=== PATIENT | female | born 1940 | race African-American/Black ===

== ENCOUNTER 2018-09-29 11:42 | Inpatient (IN) | payer OTHER ==
[2018-09-29] MEDS ORDERED: BUPIVACAINE HCL/PF 0.5% (5MG/ML) 10 ML VIAL ONE (12:16)
[2018-09-29] MEDS ORDERED: ROPIVACAINE HCL 0.5% 30ML VIAL ONE (12:23)
[2018-09-29] MEDS ORDERED: EPINEPHrine/PF 1 MG/1 ML (1:1,000) AMPULE ONE (12:23)
[2018-09-29] MEDS ORDERED: MIDAZOLAM HCL 2 MG/2 ML SINGLE DOSE VIAL ONE ×2 (12:24)
[2018-09-29] MEDS ORDERED: BUPIVACAINE LIPOSOME/PF (EXPAREL) 266 MG/20 ML VIAL ONE (13:06)
--- NOTE | 2018-09-29 13:07 | HP ---
History & Physical Update - History History: No Change - Physical Physical: No Change - Assessment Assessment: No Change - Plan Plan: No Change
[2018-09-29] MEDS ORDERED: ROCURONIUM BROMIDE 50 MG/5 ML VIAL ONE ×2 (13:10→15:09)
[2018-09-29] MEDS ORDERED: PROPOFOL 20 ML ONE (13:10)
[2018-09-29] MEDS ORDERED: DEXAMETHASONE SOD PHOSPHATE 4 MG/1 ML VIAL ONE (13:11)
[2018-09-29] MEDS ORDERED: ONDANSETRON 4 MG/2 ML VIAL ONE ×2 (13:11→16:57)
[2018-09-29] MEDS ORDERED: LIDOCAINE HCL/PF 2% SDV 5ML VIAL ONE ×2 (13:11→14:50)
[2018-09-29] MEDS ORDERED: ceFAZolin SODIUM 1 GM VIAL ONE (13:11)
[2018-09-29] MEDS ORDERED: SODIUM CHLORIDE 0.9% P/F 10 ML VIAL IJ ONE (13:11)
[2018-09-29] MEDS ORDERED: ceFAZolin SODIUM 1 GM VIAL IVPB ONE (13:45)
[2018-09-29] MEDS ORDERED: BUPIVACAINE HCL/PF 0.5% (5MG/ML) 10 ML VIAL IJ ONE ×2 (14:26→16:11)
[2018-09-29] MEDS ORDERED: BUPIVACAINE LIPOSOME/PF (EXPAREL) 266 MG/20 ML VIAL NR ONE ×2 (14:26→16:11)
[2018-09-29] MEDS ORDERED: ePHEDrine SULFATE 50 MG/1 ML AMPULE ONE (14:58)
[2018-09-29] MEDS ORDERED: NEOSTIGMINE METHYLSULFATE 0.5 MG/1 ML - 10 ML MDV ONE (15:48)
[2018-09-29] MEDS ORDERED: GLYCOPYRROLATE 0.2 MG/1 ML VIAL ONE (15:49)
--- NOTE | 2018-09-29 16:19 | OP ---
Operative Note - Note: Operative Date: 09/29/18 Pre-Operative Diagnosis: non functioning L kidney Operation: attempted laparoscopic L nephrectomy, open L nephrectomy Findings: severely scarred and socked in L kidney Post-Operative Diagnosis: Same as Pre-op Surgeon: Tom Amaro Reed Repairer: Jerod Mauro Anesthesiologist/STATION WORKER: Nate Dave Anesthesia: General Specimens Removed: L kidney Estimated Blood Loss (mls): 1,000 Drains & Tubes with Location: 16 fr wilhelm Operative Report Dictated: Yes
[2018-09-29] MEDS ORDERED: oxyCODONE HCL 5 MG TABLET PO PRN (16:42)
[2018-09-29] MEDS ORDERED: PROMETHAZINE HCL 25 MG/1 ML VIAL IVPB PRN (16:45)
[2018-09-29] MEDS ORDERED: DEXAMETHASONE SOD PHOSPHATE 4 MG/1 ML VIAL IVPUSH PRN (16:45)
[2018-09-29] MEDS ORDERED: HYDROmorphone *PCA* 10MG/50ML DISP.SYRIN ONE (16:56)
--- NOTE | 2018-09-29 16:59 | OP ---
DATE OF OPERATION: 09/29/2018 PREOPERATIVE DIAGNOSIS: Nonfunctioning left kidney. POSTOPERATIVE DIAGNOSIS: Nonfunctioning left kidney. PROCEDURE PERFORMED: Attempted left laparoscopic nephrectomy and open left nephrectomy. SURGEON: Esau Robledo M.D. THIRD LOADER: Zunilda ANESTHESIA: General via endotracheal tube. ANESTHESIOLOGIST: Nate Dave CRNA SPECIMENS: Left kidney. CULTURES: None. DRAINS: A 16-Bahraini Patterson catheter. ESTIMATED BLOOD LOSS: 1 L. COMPLICATIONS: None. DESCRIPTION OF PROCEDURE: The patient was brought into the operating room and placed on the operating table in the supine position. After the administration of general anesthesia via endotracheal tube, intravenous antibiotics were administered. A 16-Bahraini Patterson catheter was inserted. The patient was placed in the left lateral decubitus position and secured to the table. The kidney bridge was raised. Now a 1.5-cm incision was made in the anterior axillary line subcostally. A Veress needle was inserted and pneumoperitoneum was established. Three 12-mm trocars were placed. The laparoscope was inserted, as were the working instruments. Laparoscopy was performed. The left colon was dissected off the lateral body wall. 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 The decision was made to convert to an open nephrectomy. The trocars were removed. The ports were removed. A left subcostal incision was made, carried down through the underlying layers. Gerota fascia was identified. Using blunt and sharp dissection, the kidney was dissected free. The artery and vein were identified. Using blunt and sharp dissection, the vein was isolated. A vessel loop was placed on the vein, and then the artery was identified and dissected out. The artery was doubly clipped and ligated, and the vein was then ligated with 0 silk ligatures and clips as well. They were divided. The kidney was excised and sent to Pathology as a specimen. Hemostasis was assured in the renal fossa. Some Surgicel was placed. The table was flattened out, and the wound was closed in layers with running 0 Vicryl sutures and interrupted 0 Vicryl sutures for the muscle layers. The subcutaneous tissue was closed with interrupted 3-0 Vicryl sutures. The skin was closed with benji. The wound was sterilely dressed with Telfa, 4 x 4, and Tegaderm. She was awoken from anesthesia in the operating room and transferred to the recovery room in stable condition, after tolerating the procedure well. ESAU ROBLEDO M.D. [id number]
[2018-09-29] MEDS: ONDANSETRON 4 MG/2 ML VIAL IVPUSH PRN (17:00)
[2018-09-29] MEDS: HYDROmorphone *PCA* 10MG/50ML DISP.SYRIN PCA SCH (17:15)
[2018-09-29] MEDS: LACTATED RINGERS SOLUTION 1,000 ML IV SCH (20:00)
[2018-09-30] MEDS: MORPHINE SULFATE 2 MG/ML VIAL IM PRN ×2 (06:31→16:13)
[2018-09-30] MEDS ORDERED: LEVOTHYROXINE NA 150 MCG TABLET PO SCH (07:00)
[2018-09-30] MEDS ORDERED: FUROSEMIDE 40 MG/4 ML INJECTABLE VIAL IVPUSH ONE (07:08)
--- NOTE | 2018-09-30 07:17 | PN ---
ANGELA Hyman Note Chief Complaint: pt became confused and agitated this am, pulled out ivs, POD # 1 s/p L nephrectomy - Objective Vital Signs: Vital Signs Temperature 98.4 F 09/30/18 06:00 Pulse Rate 96 H 09/30/18 06:00 Respiratory Rate 20 09/30/18 06:00 Blood Pressure 123/57 L 09/30/18 06:00 O2 Sat by Pulse Oximetry (%) 96 09/29/18 21:00 Constitutional: Yes: Anxious, Diaphoresis, Mild Distress Respiratory: Yes: On Venti-Mask, Rales Gastrointestinal: Yes: Soft, Abdomen, Obese (sanguinous drainage post aspect wound) Genitourinary: Yes: Patterson Present Labs/Additional Data: Blood Type Blood Type A POSITIVE 09/29/18 13:15 Antibody Screen Negative 09/29/18 11:59 Problem List - Problems (1) SOB (shortness of breath) Assessment/Plan: tx to ICU care, check H/H, ABG, CXR Code(s): R06.02 - SHORTNESS OF BREATH (2) S/p nephrectomy Code(s): Z90.5 - ACQUIRED ABSENCE OF KIDNEY
--- NOTE | 2018-09-30 07:17 | RAPID ---
Physical Examination Vital Signs: Vital Signs Temperature 98.4 F 09/30/18 06:00 Pulse Rate 96 H 09/30/18 06:00 Respiratory Rate 20 09/30/18 06:00 Blood Pressure 123/57 L 09/30/18 06:00 O2 Sat by Pulse Oximetry (%) 96 09/29/18 21:00 Rapid Response - Rapid Response Assessment: Rapid response called for increasing lethargy. Pt. minimally responsive to tactile stimulation. Pt. is POD #1 for a Laproscopic L. Nephrectomy converted to open. Pt. was immediately give 2 units pRBCs after surgery. No baseline labs. No H&P. Call made initially to Dr Amaro before rapid called for AMS, Dr. Amaro recommended Morphine 2 mg because Pt. had pulled out saline lock. On PE: VS: BP 101/52, HR: 105, B. Pt. found to be desaturating to 80s on NC, therefore switched to NRB. Pt. had decreased breath sounds, S1, S2 present. Left flank dressing was removed and oozing blood was found under saturated dressing. EKG, CT A/P w/o contrast, Chemistry, ABG, CBC, PT/INR, and 3 units pRBCs ordered. Pt. transferred to to ICU for further management including transfusion and intubation. 2 Large bore IVs were in the process of being placed. Call made to Dr. Amaro, no answer.
[2018-09-30] MEDS ORDERED: LACTATED RINGERS SOLUTION 1000 ML INFUS.BAG IV ONE (07:20)
[2018-09-30 07:32] LABS: BASO % 0.1 % (0-2.0); HEMATOCRIT 35.5 % (32.4-45.2); MCH 28.2 pg (25.7-33.7); MEAN PLT VOLUME 10.2 fl (7.5-11.1); MONO % 7.1 % (3.8-10.2); NEUT % 87.8 % (42.8-82.8); PLATELET COUNT 182 K/MM3 (134-434); RDW 15.3 % (11.6-15.6); WHITE BLOOD COUNT 18.4 K/mm3 (4.0-10.0)
[2018-09-30 07:47] LABS: INR 0.98 (0.83-1.09); PROTHROMBIN TIME (PATIENT) 11.6 SEC (9.7-13.0)
[2018-09-30 08:06] LABS: ALBUMIN 3.2 g/dl (3.4-5.0); BILIRUBIN,TOTAL 0.4 mg/dL (0.2-1); BLOOD UREA NITROGEN 22.8 mg/dL (7-18); CALCIUM 8.5 mg/dL (8.5-10.1); CREATININE 2.4 mg/dL (0.55-1.3); MAGNESIUM 2.3 mg/dL (1.8-2.4); PHOSPHOROUS 7.3 mg/dL (2.5-4.9); POTASSIUM 5.5 mmol/L (3.5-5.1); TOT PROT 6.7 g/dl (6.4-8.2)
[2018-09-30 09:12] LABS: ARTERIAL BLD GAS O2 SATURATION 98.4 % (95-98); ARTERIAL BLOOD GAS BASE EXCESS -4.5 meq/l (-2-2); ARTERIAL BLOOD GAS PCO2 56.6 mmHg (35-45); ARTERIAL BLOOD GAS PO2 117 mmHg (80-105); ARTERIAL BLOOD GAS pH 7.23 (7.35-7.45)
[2018-09-30 09:23] LABS: ALLENS TEST POSITIVE
[2018-09-30] MEDS ORDERED: amLODIPine BESYLATE 5 MG TABLET (FP) PO SCH (10:00)
[2018-09-30] MEDS ORDERED: RAMIPRIL 5 MG CAPSULE (FP) PO SCH (10:00)
[2018-09-30] MEDS ORDERED: metoPROLOL SUCCINATE 25 MG TAB.SR.24H (FP) PO SCH (10:00)
[2018-09-30] MEDS: ONDANSETRON 4 MG/2 ML VIAL IVPUSH PRN (11:15)
[2018-09-30] MEDS: ACETAMINOPHEN 325 MG TABLET (FP) PO PRN ×2 (11:16→16:16)
--- NOTE | 2018-09-30 11:28 | EKG ---
Test Reason : Blood Pressure : / mmHG Vent. Rate : 097 BPM Atrial Rate : 097 BPM P-R Int : 168 ms QRS Dur : 130 ms QT Int : 386 ms P-R-T Axes : 043 026 -04 degrees QTc Int : 490 ms NORMAL SINUS RHYTHM WITH SINUS ARRHYTHMIA RIGHT BUNDLE BRANCH BLOCK INFERIOR INFARCT , AGE UNDETERMINED ABNORMAL ECG NO PREVIOUS ECGS AVAILABLE Confirmed by JACKSON REEVES MD ([id number]) on 09/30/2018 11:27:57 AM Referred By: FRANCIA ABDI DR Confirmed By:JACKSON REEVES MD
[2018-09-30] MEDS: MUPIROCIN 2% TOPICAL OINTMENT FOR DECOLONIZATION NS SCH ×2 (11:35→21:49)
--- NOTE | 2018-09-30 12:05 | PN ---
Teaching Attending Note Name of Resident: Luis Block ATTENDING PHYSICIAN STATEMENT I saw and evaluated the patient. I reviewed the resident's note and discussed the case with the resident. I agree with the resident's findings and plan as documented. SUBJECTIVE: Patient seen and examined in the ICU. More awake and alert. Denies CP or SOB. Baseline H&H not known. Seen by surgery this AM. Intake & Output 09/27/18 09/28/18 09/29/18 09/30/18 23:59 23:59 23:59 23:59 Intake Total 3000 1200 Output Total 1670 300 Balance 1330 900 Weight 197 lb Last Vital Signs Temp Pulse Resp BP Pulse Ox 98.2 F 87 20 131/83 96 09/30/18 07:17 09/30/18 10:00 09/30/18 10:00 09/30/18 10:00 09/29/18 21:00 Active Medications Acetaminophen (Tylenol -) 650 mg PO Q4H PRN PRN Reason: PAIN SCALE 4-6 Stop: 10/02/18 16:41 Last Admin: 09/30/18 11:16 Dose: 650 mg Amlodipine Besylate (Norvasc -) 5 mg PO DAILY [facility] Last Admin: 09/30/18 11:16 Dose: 5 mg Chlorhexidine Gluconate (Hibiclens For Decolonization -) 1 applic TP HS [facility] Dexamethasone Sodium Phosphate (Decadron Injection -) 4 mg IVPUSH ONCE PRN PRN Reason: NAUSEA AND/OR VOMITING Diphenhydramine HCl (Benadryl Injection -) 12.5 mg IVPUSH ONCE PRN PRN Reason: FOR ITCHING Hydromorphone HCl (Hydromorphone 10 Mg/50 Ml-Ns) 10 mg FINANCIAL MANAGEMENT CONSULTANT FINANCIAL MANAGEMENT CONSULTANT [facility]; Protocol Stop: 10/06/18 17:09 Last Admin: 09/29/18 17:15 Dose: 10 mg Lactated Ringer's (Lactated Ringers Solution) 1,000 mls @ 125 mls/hr IV ASDIR [facility] Last Admin: 09/29/18 20:00 Dose: 0 mls Levothyroxine Sodium (Synthroid -) 150 mcg PO DAILY@0700 [facility] Last Admin: 09/30/18 11:00 Dose: Not Given Metoprolol Succinate (Toprol Xl -) 25 mg PO DAILY [facility] Last Admin: 09/30/18 11:16 Dose: 25 mg Morphine Sulfate (Morphine Sulfate) 2 mg IM Q3H PRN PRN Reason: PAIN 4-6 Last Admin: 09/30/18 06:31 Dose: 2 mg Mupirocin (Bactroban Ointment (For Decolonization) -) 1 applic NS BID [facility] Stop: 10/05/18 09:59 Last Admin: 09/30/18 11:35 Dose: 1 applic Ondansetron HCl (Zofran Injection) 4 mg IVPUSH Q4H PRN PRN Reason: NAUSEA AND/OR VOMITING Last Admin: 09/30/18 11:15 Dose: 4 mg Promethazine HCl (Phenergan Injection -) 12.5 mg IVPB Q6H PRN PRN Reason: NAUSEA AND/OR VOMITING Ramipril (Altace -) 10 mg PO DAILY [facility] Last Admin: 09/30/18 11:17 Dose: 10 mg Constitutional: Yes: Sleepy but easily arousal, NAD Respiratory: Yes: Bibasilar rhonchi, nop wheeze Cardiac: S1S2 regular Gastrointestinal: Yes: Soft, Abdomen, Obese, intact dressing left flank Genitourinary: Yes: Patterson Present Labs/Additional Data: Laboratory Results - last 24 hr 09/29/18 09/29/18 09/29/18 11:59 12:29 13:15 WBC RBC Hgb Hct MCV MCH MCHC RDW Plt Count MPV Absolute Neuts (auto) Neutrophils % Lymphocytes % Monocytes % Eosinophils % Basophils % Nucleated RBC % PT with INR INR Puncture Site ABG pH ABG pCO2 at Pt Temp ABG pO2 at Pt Temp ABG HCO3 ABG O2 Sat (Measured) ABG O2 Content ABG Base Excess Micheal Test O2 Delivery Device Oxygen Flow Rate Sodium Potassium Chloride Carbon Dioxide Anion Gap BUN Creatinine Est GFR (CKD-EPI)AfAm Est GFR (CKD-EPI)NonAf POC Glucometer 108 Random Glucose Lactic Acid Calcium Phosphorus Magnesium Total Bilirubin AST ALT Alkaline Phosphatase Ammonia Total Protein Albumin Blood Type A POSITIVE A POSITIVE Antibody Screen Negative Crossmatch See Detail Crossmatch IS Only See Detail 09/29/18 09/30/18 09/30/18 13:18 06:21 07:00 WBC 18.4 H RBC 3.90 Hgb 11.0 Hct 35.5 MCV 91.0 MCH 28.2 MCHC 31.0 L RDW 15.3 Plt Count 182 MPV 10.2 Absolute Neuts (auto) 16.2 H Neutrophils % 87.8 H Lymphocytes % 5.0 L Monocytes % 7.1 Eosinophils % 0.0 Basophils % 0.1 Nucleated RBC % 0 PT with INR INR Puncture Site ABG pH ABG pCO2 at Pt Temp ABG pO2 at Pt Temp ABG HCO3 ABG O2 Sat (Measured) ABG O2 Content ABG Base Excess Micheal Test O2 Delivery Device Oxygen Flow Rate Sodium Potassium Chloride Carbon Dioxide Anion Gap BUN Creatinine Est GFR (CKD-EPI)AfAm Est GFR (CKD-EPI)NonAf POC Glucometer 194 Random Glucose Lactic Acid Calcium Phosphorus Magnesium Total Bilirubin AST ALT Alkaline Phosphatase Ammonia Total Protein Albumin Blood Type Cancelled Antibody Screen Cancelled Crossmatch Crossmatch IS Only 09/30/18 09/30/18 09/30/18 07:00 07:00 09:05 WBC RBC Hgb Hct MCV MCH MCHC RDW Plt Count MPV Absolute Neuts (auto) Neutrophils % Lymphocytes % Monocytes % Eosinophils % Basophils % Nucleated RBC % PT with INR 11.60 INR 0.98 Puncture Site Right radial ABG pH 7.23 L ABG pCO2 at Pt Temp 56.6 H ABG pO2 at Pt Temp 117 H ABG HCO3 23.0 ABG O2 Sat (Measured) 98.4 H ABG O2 Content 15.3 ABG Base Excess -4.5 L Micheal Test Positive O2 Delivery Device Nasal cannula Oxygen Flow Rate 5l Sodium 142 Potassium 5.5 H Chloride 109 H Carbon Dioxide 23 Anion Gap 10 BUN 22.8 H Creatinine 2.4 H Est GFR (CKD-EPI)AfAm 21.68 Est GFR (CKD-EPI)NonAf 18.71 POC Glucometer Random Glucose 193 H Lactic Acid Calcium 8.5 Phosphorus 7.3 H Magnesium 2.3 Total Bilirubin 0.4 AST 118 H ALT 40 Alkaline Phosphatase 104 Ammonia Total Protein 6.7 Albumin 3.2 L Blood Type Antibody Screen Crossmatch Crossmatch IS Only 09/30/18 09/30/18 09:17 09:17 WBC RBC Hgb Hct MCV MCH MCHC RDW Plt Count MPV Absolute Neuts (auto) Neutrophils % Lymphocytes % Monocytes % Eosinophils % Basophils % Nucleated RBC % PT with INR INR Puncture Site ABG pH ABG pCO2 at Pt Temp ABG pO2 at Pt Temp ABG HCO3 ABG O2 Sat (Measured) ABG O2 Content ABG Base Excess Micheal Test O2 Delivery Device Oxygen Flow Rate Sodium Potassium Chloride Carbon Dioxide Anion Gap BUN Creatinine Est GFR (CKD-EPI)AfAm Est GFR (CKD-EPI)NonAf POC Glucometer Random Glucose Lactic Acid 1.5 Calcium Phosphorus Magnesium Total Bilirubin AST ALT Alkaline Phosphatase Ammonia 21.70 Total Protein Albumin Blood Type Antibody Screen Crossmatch Crossmatch IS Only Problem List - Problems (1) SOB (shortness of breath) Assessment/Plan: tx to ICU care, check H/H, ABG, CXR Code(s): R06.02 - SHORTNESS OF BREATH (2) S/p nephrectomy Code(s): Z90.5 - ACQUIRED ABSENCE OF KIDNEY IMP: Post operative bleeding AMS due to Hypercapnea, resolving (?) OSAS Obesity Pulmonary Vascular Congestion: Etiology to be determined Follow H&H: if down trending -> CT Abdomen/Pelvis Normal transfusion thresholds ECHO Follow CXR Strict I & O Mechanical VTE prophylaxis Lasix as needed Pain control PO as tolerated when more awake Aspiration precautions Requires ICU monitoring for tenuous overall status Dr Georges Critical care time spent in reviewing chart, evaluating patient and formulating plan - 36 minutes.
--- NOTE | 2018-09-30 12:51 | CONSULT ---
Consultation: REQUESTING PROVIDER: Dr. Amaro CONSULT REQUEST: We have been asked to medically evaluate this patient for altered mental status, potential bleed HISTORY OF PRESENT ILLNESS: 78 year old female with hx HTN, HLD, hypothyroidism, CAD, CKD, DM, CABG at [facility] 2012, and non-functional L kidney is admitted to the hospital s/p L total nephrectomy. She had a non-functional L kidney per surgeon from frequent nephrolithiases and multiple infections. She had a failed L nephrostomy tube insertion on 03/2018. She is POD#1 L total nephrectomy. ICU was consulted for respiratory compromise and bleeding from surgical incision site. Currently the patient is in no acute distress. No active bleeding. Hgb currently stable. No chest pain, SOB, nausea, vomiting, diarrhea, fevers, chills. Prior Echo 04/2018: LVH, normal LV function, LA enlargement, mitral annular calcification, mild mitral regurgitation, fibrocalcific disease of aortic valve. Social: Smoke: former, quit over 25 years ago Alcohol: none Drugs: none REVIEW OF SYSTEMS: CONSTITUTIONAL: Absent: fever, chills, diaphoresis, generalized weakness, malaise, loss of appetite, weight change HEENT: Absent: rhinorrhea, nasal congestion, throat pain, throat swelling, difficulty swallowing, mouth swelling, ear pain, eye pain, visual changes CARDIOVASCULAR: Absent: chest pain, syncope, palpitations, irregular heart rate, lightheadedness , peripheral edema RESPIRATORY: Absent: cough, shortness of breath, dyspnea with exertion, orthopnea, wheezing, stridor, hemoptysis GASTROINTESTINAL: Absent: abdominal pain, abdominal distension, nausea, vomiting, diarrhea, constipation, melena, hematochezia GENITOURINARY: Absent: dysuria, frequency, urgency, hesitancy, hematuria, flank pain, genital pain MUSCULOSKELETAL: Absent: myalgia, arthralgia, joint swelling, back pain, neck pain SKIN: Absent: rash, itching, pallor HEMATOLOGIC/IMMUNOLOGIC: Absent: easy bleeding, easy bruising, lymphadenopathy, frequent infections ENDOCRINE: Absent: unexplained weight gain, unexplained weight loss, heat intolerance, cold intolerance NEUROLOGIC: Absent: headache, focal weakness or paresthesias, dizziness, unsteady gait, seizure, mental status changes, bladder or bowel incontinence PSYCHIATRIC: Absent: anxiety, depression, suicidal or homicidal ideation, hallucinations. PHYSICAL EXAMINATION Vital Signs - 24 hr 09/29/18 09/29/18 09/29/18 16:46 17:00 17:15 Temperature 97.6 F Pulse Rate 75 69 73 Respiratory 20 12 14 Rate Blood Pressure 103/40 L 123/77 131/64 O2 Sat by Pulse 100 100 100 Oximetry (%) 09/29/18 09/29/18 09/29/18 17:30 17:45 18:00 Temperature 100 F H 97.6 F Pulse Rate 76 75 83 Respiratory 18 13 12 Rate Blood Pressure 141/71 135/70 136/74 O2 Sat by Pulse 100 100 Oximetry (%) 09/29/18 09/29/18 09/29/18 18:15 18:30 18:45 Temperature 97.7 F Pulse Rate 85 84 88 Respiratory 15 13 12 Rate Blood Pressure 142/90 154/88 140/78 O2 Sat by Pulse 100 100 96 Oximetry (%) 09/29/18 09/29/18 09/29/18 19:00 19:15 19:30 Temperature Pulse Rate 93 H 100 H 99 H Respiratory 10 12 10 Rate Blood Pressure 145/75 124/91 131/89 O2 Sat by Pulse 97 95 97 Oximetry (%) 09/29/18 09/29/18 09/29/18 19:45 20:00 21:00 Temperature 98.1 F 98.4 F Pulse Rate 102 H 101 H 88 Respiratory 10 14 20 Rate Blood Pressure 151/76 140/86 159/77 O2 Sat by Pulse 100 96 96 Oximetry (%) 09/30/18 09/30/18 09/30/18 01:34 06:00 07:05 Temperature 97.8 F 98.4 F 98 F Pulse Rate 100 H 96 H 99 H Respiratory 20 20 14 Rate Blood Pressure 125/56 L 123/57 L 105/87 O2 Sat by Pulse Oximetry (%) 09/30/18 09/30/18 09/30/18 07:17 08:56 09:00 Temperature 98.2 F Pulse Rate 98 H 96 H 91 H Respiratory 20 20 15 Rate Blood Pressure 127/60 152/79 127/62 O2 Sat by Pulse Oximetry (%) 09/30/18 09/30/18 09/30/18 10:00 12:00 12:11 Temperature 97.9 F Pulse Rate 87 88 Respiratory 20 20 Rate Blood Pressure 131/83 103/63 O2 Sat by Pulse Oximetry (%) GENERAL: A&Ox1, no distress EYES: PERRL/EOMI EARS, NOSE, THROAT: Ears normal, nares patent, oropharynx clear without exudates. Moist mucous membranes. NECK: Normal range of motion, supple without lymphadenopathy, JVD, or masses. LUNGS: Breath sounds equal, clear to auscultation bilaterally. No wheezes, and no crackles. No accessory muscle use. HEART: Regular rate and rhythm, normal S1 and S2 without murmur, rub or gallop. ABDOMEN: Soft, nontender, not distended, normoactive bowel sounds, no guarding, no rebound, no masses. No hepatomegaly or splenomegaly. L sided dressing on L flank with small amount of serosanguinous drainage from inferior aspect of wound MUSCULOSKELETAL: Normal range of motion at all joints. No bony deformities or tenderness. No CVA tenderness. UPPER EXTREMITIES: 2+ pulses, warm, well-perfused. No cyanosis. No clubbing. Cap refill <2 seconds. No peripheral edema. LOWER EXTREMITIES: 2+ pulses, warm, well-perfused. No calf tenderness. No peripheral edema. NEUROLOGICAL: Cranial nerves II-XII intact. Normal speech. Normal gait. PSYCHIATRIC: Cooperative. Good eye contact. Appropriate mood and affect. SKIN: Warm, dry, normal turgor, no rashes or lesions noted. Laboratory Results - last 24 hr 09/29/18 09/29/18 09/29/18 11:59 13:15 13:18 WBC RBC Hgb Hct MCV MCH MCHC RDW Plt Count MPV Absolute Neuts (auto) Neutrophils % Lymphocytes % Monocytes % Eosinophils % Basophils % Nucleated RBC % PT with INR INR Puncture Site ABG pH ABG pCO2 at Pt Temp ABG pO2 at Pt Temp ABG HCO3 ABG O2 Sat (Measured) ABG O2 Content ABG Base Excess Micheal Test O2 Delivery Device Oxygen Flow Rate Sodium Potassium Chloride Carbon Dioxide Anion Gap BUN Creatinine Est GFR (CKD-EPI)AfAm Est GFR (CKD-EPI)NonAf POC Glucometer Random Glucose Lactic Acid Calcium Phosphorus Magnesium Total Bilirubin AST ALT Alkaline Phosphatase Ammonia Total Protein Albumin Blood Type A POSITIVE A POSITIVE Cancelled Antibody Screen Negative Cancelled Crossmatch See Detail Crossmatch IS Only See Detail 09/30/18 09/30/18 09/30/18 06:21 07:00 07:00 WBC 18.4 H RBC 3.90 Hgb 11.0 Hct 35.5 MCV 91.0 MCH 28.2 MCHC 31.0 L RDW 15.3 Plt Count 182 MPV 10.2 Absolute Neuts (auto) 16.2 H Neutrophils % 87.8 H Lymphocytes % 5.0 L Monocytes % 7.1 Eosinophils % 0.0 Basophils % 0.1 Nucleated RBC % 0 PT with INR INR Puncture Site ABG pH ABG pCO2 at Pt Temp ABG pO2 at Pt Temp ABG HCO3 ABG O2 Sat (Measured) ABG O2 Content ABG Base Excess Micheal Test O2 Delivery Device Oxygen Flow Rate Sodium 142 Potassium 5.5 H Chloride 109 H Carbon Dioxide 23 Anion Gap 10 BUN 22.8 H Creatinine 2.4 H Est GFR (CKD-EPI)AfAm 21.68 Est GFR (CKD-EPI)NonAf 18.71 POC Glucometer 194 Random Glucose 193 H Lactic Acid Calcium 8.5 Phosphorus 7.3 H Magnesium 2.3 Total Bilirubin 0.4 AST 118 H ALT 40 Alkaline Phosphatase 104 Ammonia Total Protein 6.7 Albumin 3.2 L Blood Type Antibody Screen Crossmatch Crossmatch IS Only 09/30/18 09/30/18 09/30/18 07:00 09:05 09:17 WBC RBC Hgb Hct MCV MCH MCHC RDW Plt Count MPV Absolute Neuts (auto) Neutrophils % Lymphocytes % Monocytes % Eosinophils % Basophils % Nucleated RBC % PT with INR 11.60 INR 0.98 Puncture Site Right radial ABG pH 7.23 L ABG pCO2 at Pt Temp 56.6 H ABG pO2 at Pt Temp 117 H ABG HCO3 23.0 ABG O2 Sat (Measured) 98.4 H ABG O2 Content 15.3 ABG Base Excess -4.5 L Micheal Test Positive O2 Delivery Device Nasal cannula Oxygen Flow Rate 5l Sodium Potassium Chloride Carbon Dioxide Anion Gap BUN Creatinine Est GFR (CKD-EPI)AfAm Est GFR (CKD-EPI)NonAf POC Glucometer Random Glucose Lactic Acid Calcium Phosphorus Magnesium Total Bilirubin AST ALT Alkaline Phosphatase Ammonia 21.70 Total Protein Albumin Blood Type Antibody Screen Crossmatch Crossmatch IS Only 09/30/18 09:17 WBC RBC Hgb Hct MCV MCH MCHC RDW Plt Count MPV Absolute Neuts (auto) Neutrophils % Lymphocytes % Monocytes % Eosinophils % Basophils % Nucleated RBC % PT with INR INR Puncture Site ABG pH ABG pCO2 at Pt Temp ABG pO2 at Pt Temp ABG HCO3 ABG O2 Sat (Measured) ABG O2 Content ABG Base Excess Micheal Test O2 Delivery Device Oxygen Flow Rate Sodium Potassium Chloride Carbon Dioxide Anion Gap BUN Creatinine Est GFR (CKD-EPI)AfAm Est GFR (CKD-EPI)NonAf POC Glucometer Random Glucose Lactic Acid 1.5 Calcium Phosphorus Magnesium Total Bilirubin AST ALT Alkaline Phosphatase Ammonia Total Protein Albumin Blood Type Antibody Screen Crossmatch Crossmatch IS Only Active Medications Generic Name Dose Route Start Last Admin Trade Name Freq PRN Reason Stop Dose Admin Acetaminophen 650 mg 09/29/18 16:42 09/30/18 11:16 Tylenol - PO 10/02/18 16:41 650 mg Q4H PRN Administration PAIN SCALE 4-6 Amlodipine Besylate 5 mg 09/30/18 10:00 09/30/18 11:16 Norvasc - PO 5 mg DAILY СВЕТЛАНА Administration Chlorhexidine Gluconate 1 applic 09/30/18 22:00 Hibiclens For Decolonization - TP HS СВЕТЛАНА Dexamethasone Sodium Phosphate 4 mg 09/29/18 16:45 Decadron Injection - IVPUSH ONCE PRN NAUSEA AND/OR VOMITING Diphenhydramine HCl 12.5 mg 09/29/18 16:45 Benadryl Injection - IVPUSH ONCE PRN FOR ITCHING Hydromorphone HCl 10 mg 09/29/18 17:15 09/29/18 17:15 Hydromorphone 10 Mg/50 Ml-Ns TOE FORMER STITCHDOWNS 10/06/18 17:09 10 mg TOE FORMER STITCHDOWNS СВЕТЛАНА Administration Protocol Lactated Ringer's 1,000 mls @ 125 mls/hr 09/29/18 16:45 09/29/18 20:00 Lactated Ringers Solution IV 0 mls ASDIR СВЕТЛАНА Administration Levothyroxine Sodium 150 mcg 09/30/18 07:00 09/30/18 11:00 Synthroid - PO Not Given DAILY@0700 СВЕТЛАНА Metoprolol Succinate 25 mg 09/30/18 10:00 09/30/18 11:16 Toprol Xl - PO 25 mg DAILY СВЕТЛАНА Administration Morphine Sulfate 2 mg 09/30/18 06:20 09/30/18 06:31 Morphine Sulfate IM 2 mg Q3H PRN Administration PAIN 4-6 Mupirocin 1 applic 09/30/18 10:00 09/30/18 11:35 Bactroban Ointment (For Decolonization) - NS 10/05/18 09:59 1 applic BID СВЕТЛАНА Administration Ondansetron HCl 4 mg 09/29/18 16:45 09/30/18 11:15 Zofran Injection IVPUSH 4 mg Q4H PRN Administration NAUSEA AND/OR VOMITING Promethazine HCl 12.5 mg 09/29/18 16:45 Phenergan Injection - IVPB Q6H PRN NAUSEA AND/OR VOMITING Ramipril 10 mg 09/30/18 10:00 09/30/18 11:17 Altace - PO 10 mg DAILY СВЕТЛАНА Administration ASSESSMENT/PLAN: 78 year old female with hx HTN, HLD, hypothyroidism, CAD, CKD, DM, CABG at [facility], and non-functional L kidney is admitted to the hospital s/p L total nephrectomy. #Neuro -altered mental status, likely 2/2 COPD retention -ABG shows hypercapnia with acidosis -mental status resolved #Pulmonary -no respiratory distress -on nasal cannula saturating 100% -encourage incentive spirometry -lasix PRN #Cardiovascular -postoperative bleeding likely controlled -repeat H&H now and in the afternoon -new echo now -repeat EKG #Endocrine -DM controlled -ISS -BGM ACHS -levothyroxine for hypothyroidism #FEN -no standing fluids -replete lytes as necessary #Disposition -likely transfer to floor tomorrow Visit type - Emergency Visit Emergency Visit: No - New Patient This patient is new to me today: No - Critical Care Critical Care patient: Yes Total Critical Care Time (in minutes): 35 Critical Care Statement: The care of this patient involved high complexity decision making to prevent further life threatening deterioration of the patient 's condition and/or to evaluate & treat vital organ system(s) failure or risk of failure.
--- NOTE | 2018-09-30 15:47 | PN ---
Physical Exam: SUBJECTIVE: Patient seen and examined at bedside NAD, AOX3, vitals stable, no current complaints OBJECTIVE: Vital Signs Period Temp Pulse Resp BP Sys/Alves Pulse Ox Last 24 Hr 97.6 F-100 F 69-102 10-22 103-159/40-94 95-100 GENERAL: The patient is awake, alert, and fully oriented, in no acute distress. HEAD: Normal with no signs of trauma. EYES: PERRL, extraocular movements intact, sclera anicteric, conjunctiva clear. No ptosis. ENT: Ears normal, nares patent, oropharynx clear without exudates, moist mucous membranes. NECK: Trachea midline, full range of motion, supple. LUNGS: Breath sounds equal, clear to auscultation bilaterally, no wheezes, no crackles, no accessory muscle use. HEART: Regular rate and rhythm, S1, S2 without murmur, rub or gallop. ABDOMEN: Soft, nontender, nondistended, normoactive bowel sounds, no guarding, no rebound, no hepatosplenomegaly, no masses. S/P left nepherectomy with active oozing from surgical site. Replaced with gauze and lap pads, no active bleeding EXTREMITIES: 2+ pulses, warm, well-perfused, no edema. NEUROLOGICAL: Cranial nerves II through XII grossly intact. Normal speech, gait not observed. PSYCH: Normal mood, normal affect. SKIN: Warm, dry, normal turgor, no rashes or lesions noted Laboratory Results - last 24 hr 09/29/18 09/30/18 09/30/18 11:59 06:21 07:00 WBC 18.4 H RBC 3.90 Hgb 11.0 Hct 35.5 MCV 91.0 MCH 28.2 MCHC 31.0 L RDW 15.3 Plt Count 182 MPV 10.2 Absolute Neuts (auto) 16.2 H Neutrophils % 87.8 H Lymphocytes % 5.0 L Monocytes % 7.1 Eosinophils % 0.0 Basophils % 0.1 Nucleated RBC % 0 PT with INR INR Puncture Site ABG pH ABG pCO2 at Pt Temp ABG pO2 at Pt Temp ABG HCO3 ABG O2 Sat (Measured) ABG O2 Content ABG Base Excess Micheal Test O2 Delivery Device Oxygen Flow Rate Sodium Potassium Chloride Carbon Dioxide Anion Gap BUN Creatinine Est GFR (CKD-EPI)AfAm Est GFR (CKD-EPI)NonAf POC Glucometer 194 Random Glucose Lactic Acid Calcium Phosphorus Magnesium Total Bilirubin AST ALT Alkaline Phosphatase Ammonia Total Protein Albumin Blood Type A POSITIVE Antibody Screen Negative Crossmatch See Detail Crossmatch IS Only See Detail 09/30/18 09/30/18 09/30/18 07:00 07:00 09:05 WBC RBC Hgb Hct MCV MCH MCHC RDW Plt Count MPV Absolute Neuts (auto) Neutrophils % Lymphocytes % Monocytes % Eosinophils % Basophils % Nucleated RBC % PT with INR 11.60 INR 0.98 Puncture Site Right radial ABG pH 7.23 L ABG pCO2 at Pt Temp 56.6 H ABG pO2 at Pt Temp 117 H ABG HCO3 23.0 ABG O2 Sat (Measured) 98.4 H ABG O2 Content 15.3 ABG Base Excess -4.5 L Micheal Test Positive O2 Delivery Device Nasal cannula Oxygen Flow Rate 5l Sodium 142 Potassium 5.5 H Chloride 109 H Carbon Dioxide 23 Anion Gap 10 BUN 22.8 H Creatinine 2.4 H Est GFR (CKD-EPI)AfAm 21.68 Est GFR (CKD-EPI)NonAf 18.71 POC Glucometer Random Glucose 193 H Lactic Acid Calcium 8.5 Phosphorus 7.3 H Magnesium 2.3 Total Bilirubin 0.4 AST 118 H ALT 40 Alkaline Phosphatase 104 Ammonia Total Protein 6.7 Albumin 3.2 L Blood Type Antibody Screen Crossmatch Crossmatch IS Only 09/30/18 09/30/18 09:17 09:17 WBC RBC Hgb Hct MCV MCH MCHC RDW Plt Count MPV Absolute Neuts (auto) Neutrophils % Lymphocytes % Monocytes % Eosinophils % Basophils % Nucleated RBC % PT with INR INR Puncture Site ABG pH ABG pCO2 at Pt Temp ABG pO2 at Pt Temp ABG HCO3 ABG O2 Sat (Measured) ABG O2 Content ABG Base Excess Micheal Test O2 Delivery Device Oxygen Flow Rate Sodium Potassium Chloride Carbon Dioxide Anion Gap BUN Creatinine Est GFR (CKD-EPI)AfAm Est GFR (CKD-EPI)NonAf POC Glucometer Random Glucose Lactic Acid 1.5 Calcium Phosphorus Magnesium Total Bilirubin AST ALT Alkaline Phosphatase Ammonia 21.70 Total Protein Albumin Blood Type Antibody Screen Crossmatch Crossmatch IS Only Active Medications Generic Name Dose Route Start Last Admin Trade Name Freq PRN Reason Stop Dose Admin Acetaminophen 650 mg 09/29/18 16:42 09/30/18 11:16 Tylenol - PO 10/02/18 16:41 650 mg Q4H PRN Administration PAIN SCALE 4-6 Amlodipine Besylate 5 mg 10/01/18 10:00 Norvasc - PO DAILY [facility] Chlorhexidine Gluconate 1 applic 09/30/18 22:00 Hibiclens For Decolonization - TP HS СВЕТЛАНА Dexamethasone Sodium Phosphate 4 mg 09/29/18 16:45 Decadron Injection - IVPUSH ONCE PRN NAUSEA AND/OR VOMITING Diphenhydramine HCl 12.5 mg 09/29/18 16:45 Benadryl Injection - IVPUSH ONCE PRN FOR ITCHING Hydromorphone HCl 10 mg 09/29/18 17:15 09/29/18 17:15 Hydromorphone 10 Mg/50 Ml-Ns [employer] 10/06/18 17:09 10 mg [employer] СВЕТЛАНА Administration Protocol Lactated Ringer's 1,000 mls @ 125 mls/hr 09/29/18 16:45 09/29/18 20:00 Lactated Ringers Solution IV 0 mls ASDIR [facility] Administration Insulin Aspart 1 vial 09/30/18 16:30 Novolog Vial Sliding Scale - SQ ACHS [facility] Protocol Levothyroxine Sodium 150 mcg 09/30/18 07:00 09/30/18 11:00 Synthroid - PO Not Given DAILY@0700 [facility] Metoprolol Succinate 25 mg 09/30/18 10:00 09/30/18 11:16 Toprol Xl - PO 25 mg DAILY СВ[facility]ТЛАН[facility] Administration Morphine Sulfate 2 mg 09/30/18 06:20 09/30/18 06:31 Morphine Sulfate IM 2 mg Q3H PRN Administration PAIN 4-6 Mupirocin 1 applic 09/30/18 10:00 09/30/18 11:35 Bactroban Ointment (For Decolonization) - NS 10/05/18 09:59 1 applic BID [facility] Administration Ondansetron HCl 4 mg 09/29/18 16:45 09/30/18 11:15 Zofran Injection IVPUSH 4 mg Q4H PRN Administration NAUSEA AND/OR VOMITING Promethazine HCl 12.5 mg 09/29/18 16:45 Phenergan Injection - IVPB Q6H PRN NAUSEA AND/OR VOMITING Ramipril 10 mg 09/30/18 10:00 09/30/18 11:17 Altace - PO 10 mg DAILY СВЕТЛАНА Administration Rosuvastatin Calcium 10 mg 10/01/18 22:00 Crestor - PO HS СВЕТЛАНА ASSESSMENT/PLAN: 78 year old female with hx HTN, HLD, hypothyroidism, CAD, CKD, DM, CABG at [place] 2012, and non-functional L kidney is admitted to the hospital s/p L total nephrectomy. Rapid response called for AMS, hypoxia and active bleeding from surgical site. Of not, pt has [employer] and apparently given morphine as well for pain last night blood ordered by rapid response team and reports of considering intubation due to AMS and potential for loosing airway. Place 18 gauge Right EJ and pt has 2 peripheral [address] LR started however after 500cc bolus, pt had bilateral crackles, fluids stopped and given lasix push with resolution of crackles on reassessment Pt noted to be mumbling the alphabet repetitively from admission to ICU 7 am to approx 8 am, became AOX3 return to baseline Hemoglobin 11, dressing replaced with no active bleeding Pt AOX3, NAD, no current complaints, vitals stable PCP: Dr. Haynes # [phone] Most recent labs per PCP 09/20/2018 labs: cr 1.17, bun 20 hemoglobin 11.8 last a1c 6.4 PMH: hypothyroidism (levothyrox 150 mcq) dm no medications since last a1c CAD, stents 2012, Dr. rod at [facility], no blood thinners HTN: ramipril 10 mg, amlodpine 5 mg, metoprolol 25 HLD: crestor 20 depression no medication Right hip chronic pain no allergies former smoker Pt totally functional at home, plans for travel next month Plan: #Neuro -altered mental status, Opiate induced vs hypercapnia - Hold all opiates -ABG shows hypercapnia with acidosis -mental status resolved #Pulmonary -no respiratory distress -on nasal cannula saturating 100% -encourage incentive spirometry -lasix PRN #Cardiovascular -postoperative bleeding likely controlled -repeat H&H now and in the afternoon -new echo now -repeat EKG #Endocrine -DM controlled -ISS -BGM ACHS -levothyroxine for hypothyroidism #FEN -no standing fluids -replete lytes as necessary #Disposition -likely transfer to floor tomorrow Visit type - Emergency Visit Emergency Visit: Yes ED Registration Date: 09/29/18 Care time: The patient presented to the Emergency Department on the above date and was hospitalized for further evaluation of their emergent condition. - New Patient This patient is new to me today: Yes Date on this admission: 09/30/18 - Critical Care Critical Care patient: Yes Total Critical Care Time (in minutes): 60 Critical Care Statement: The care of this patient involved high complexity decision making to prevent further life threatening deterioration of the patient 's condition and/or to evaluate & treat vital organ system(s) failure or risk of failure.
[2018-09-30] MEDS ORDERED: LIDOCAINE 5% TOPICAL PATCH TP ONE (16:05)
[2018-09-30] MEDS: INSULIN SLIDING SCALE (NOVOLOG) 1 VIAL SQ SCH ×2 (17:05→21:49)
[2018-09-30 17:24] LABS: EPI CELLS 0.4 /HPF (0-5/HPF); HYALINE CASTS 9 /lpf (0-8); URINE APPEARANCE CLEAR; URINE BACTERIA 1.2 /hpf (NEGATIVE); URINE BILIRUBIN NEGATIVE (NEGATIVE); URINE COLOR YELLOW; URINE GLUCOSE (UA) NEGATIVE (NEGATIVE); URINE KETONE NEGATIVE (NEGATIVE); URINE LEUK ESTERASE NEGATIVE (NEGATIVE); URINE NITRITE NEGATIVE (NEGATIVE); URINE PROTEIN NEGATIVE (NEGATIVE); URINE UROBILINOGEN 0.2 mg/dL (0.2-1.0); URINE WBC 1 /hpf (0-5)
[2018-09-30] MEDS ORDERED: PROMETHAZINE HCL 25 MG/1 ML VIAL IVPB PRN (17:31)
[2018-09-30] MEDS ORDERED: ONDANSETRON 4 MG/2 ML VIAL IVPUSH PRN (17:31)
[2018-09-30] MEDS ORDERED: DEXAMETHASONE SOD PHOSPHATE 4 MG/1 ML VIAL IVPUSH PRN (17:31)
[2018-09-30 17:45] LABS: HEMOGLOBIN 10.5 GM/dL (10.7-15.3); MCH 28.2 pg (25.7-33.7); MCHC 31.8 g/dl (32.0-36.0); MEAN CELL VOLUME 88.4 fl (80-96); MEAN PLT VOLUME 9.9 fl (7.5-11.1); PLATELET COUNT 158 K/MM3 (134-434); RBC 3.74 M/mm3 (3.60-5.2); RDW 15.3 % (11.6-15.6); WHITE BLOOD COUNT 16.8 K/mm3 (4.0-10.0)
[2018-09-30] MEDS: HYDROmorphone *PCA* 10MG/50ML DISP.SYRIN PCA SCH (18:34)
[2018-09-30] MEDS: LACTATED RINGERS SOLUTION 1,000 ML IV SCH (18:34)
[2018-09-30 19:14] LABS: URINE RBC 8.9 /hpf (0-4)
[2018-09-30] MEDS ORDERED: morphine CARPU-JECT 2 MG/1 ML DISP.SYRIN IVPUSH PRN (19:54)
[2018-09-30] MEDS ORDERED: MORPHINE SULFATE 2 MG/ML VIAL ONE (20:11)
[2018-09-30 20:13] LABS: HEMATOCRIT 32.1 % (32.4-45.2); HEMOGLOBIN 10.4 GM/dL (10.7-15.3); MCH 28.6 pg (25.7-33.7); MCHC 32.4 g/dl (32.0-36.0); MEAN CELL VOLUME 88.3 fl (80-96); MEAN PLT VOLUME 9.8 fl (7.5-11.1); PLATELET COUNT 147 K/MM3 (134-434); RBC 3.63 M/mm3 (3.60-5.2); RDW 15.1 % (11.6-15.6); WHITE BLOOD COUNT 18.3 K/mm3 (4.0-10.0)
[2018-09-30] MEDS: ACETAMINOPHEN 650 MG/20.3 ML ORAL SOLUTION (CUPS) PO PRN (20:17)
[2018-09-30] MEDS: MORPHINE SULFATE 2 MG/ML VIAL IVPUSH PRN (20:30)
[2018-09-30] MEDS: CHLORHEXIDINE GLUCONATE 4% CLEANSER FOR DECOLONIZATION TP SCH (21:48)
[2018-09-30] MEDS: LIDOCAINE PATCH REMOVAL MC SCH (21:48)
[2018-10-01] MEDS: MORPHINE SULFATE 2 MG/ML VIAL IVPUSH PRN ×3 (02:23→16:35)
[2018-10-01] MEDS: INSULIN SLIDING SCALE (NOVOLOG) 1 VIAL SQ SCH ×4 (06:22→21:18)
[2018-10-01 07:55] LABS: HEMATOCRIT 30.5 % (32.4-45.2); MCH 28.6 pg (25.7-33.7); MCHC 32.7 g/dl (32.0-36.0); MEAN CELL VOLUME 87.4 fl (80-96); MEAN PLT VOLUME 10.5 fl (7.5-11.1); PLATELET COUNT 147 K/MM3 (134-434); RBC 3.49 M/mm3 (3.60-5.2)
[2018-10-01 08:00] LABS: ALBUMIN 3.1 g/dl (3.4-5.0); BILIRUBIN,TOTAL 0.4 mg/dL (0.2-1); BLOOD UREA NITROGEN 33.6 mg/dL (7-18); CALCIUM 8.7 mg/dL (8.5-10.1); CREATININE 2.4 mg/dL (0.55-1.3); POTASSIUM 4.7 mmol/L (3.5-5.1); TOT PROT 6.4 g/dl (6.4-8.2)
--- NOTE | 2018-10-01 08:28 | PN ---
Progress Note (short form) - Note Progress Note: PULM/CCM POD#2: s/p L total nephrectomy c/b AMS m/l 2/2 opiate induced hypercapnia Pt seen & examined in ICU. OOB --> Chair. CA+OX3 in NAD but somnolent & Lethargic. C/o intermittent R Flank Pain (chronic). L Flank dressing C/D/I. Active Medications Acetaminophen (Tylenol Oral Solution -) 650 mg PO Q6H PRN PRN Reason: PAIN Last Admin: 09/30/18 20:17 Dose: 650 mg Amlodipine Besylate (Norvasc -) 5 mg PO DAILY [facility] Chlorhexidine Gluconate (Hibiclens For Decolonization -) 1 applic TP HS [facility] Last Admin: 09/30/18 21:48 Dose: 1 applic Dexamethasone Sodium Phosphate (Decadron Injection -) 4 mg IVPUSH ONCE PRN PRN Reason: NAUSEA AND/OR VOMITING Insulin Aspart (Novolog Vial Sliding Scale -) 1 vial SQ [facility]; Protocol Last Admin: 10/01/18 06:22 Dose: Not Given Miscellaneous (Lidoderm Patch Removal) 1 each MC DAILY@2200 [facility] Last Admin: 09/30/18 21:48 Dose: 1 each Morphine Sulfate (Morphine Sulfate) 2 mg IVPUSH Q6H PRN PRN Reason: PAIN LEVEL 1-5 Last Admin: 10/01/18 02:23 Dose: 2 mg Mupirocin (Bactroban Ointment (For Decolonization) -) 1 applic NS BID [facility] Stop: 10/05/18 09:59 Last Admin: 09/30/18 21:49 Dose: 1 applic Ondansetron HCl (Zofran Injection) 4 mg IVPUSH Q4H PRN PRN Reason: NAUSEA AND/OR VOMITING Promethazine HCl (Phenergan Injection -) 12.5 mg IVPB Q6H PRN PRN Reason: NAUSEA AND/OR VOMITING Rosuvastatin Calcium (Crestor -) 10 mg PO [facility] Vital Signs Period Temp Pulse Resp BP Sys/Alves Pulse Ox Last 24 Hr 97.9 F-99.3 F 65-96 15-25 99-168/58-94 100 Intake & Output 09/28/18 09/29/18 09/30/18 10/01/18 23:59 23:59 23:59 23:59 Intake Total 3000 2425 Output Total 1670 1450 400 Balance 1330 975 -400 Weight 89.358 kg 88.723 kg GEN: Elderly obese woman, washed out, lethargic HEENT: PERRL, an-icteric, MMM PULM: Diminished B/L CV: nml S1 S2, RR, unable to appreciate any G/M/R ABD: Obese, hypoactive BS, S/S N/T N/D X4Q, L Flank drain C/D/I EXT: + Pulses, WWP X4, (-) edema CBC, BMP 10/01/18 06:26 ABG Results ABG pH 7.23 (7.35-7.45) L 09/30/18 09:05 ABG pCO2 at Pt Temp 56.6 mmHg (35-45) H 09/30/18 09:05 ABG pO2 at Pt Temp 117 mmHg (80-105) H 09/30/18 09:05 ABG HCO3 23.0 mmol/L (22-27) 09/30/18 09:05 ABG O2 Sat (Measured) 98.4 % (95-98) H 09/30/18 09:05 ABG O2 Content 15.3 % vol (15-22) 09/30/18 09:05 ABG Base Excess -4.5 meq/l (-2-2) L 09/30/18 09:05 RECENT STUDIES TO NOTE: CXR 09/30: A single AP view of the chest reveals sternal sutures and clips, large heart, sclerotic knob and congestive changes. Angles are sharp. The bones and soft tissues are intact. KUB 09/29: No unintentional radiopaque foreign body is seen. Surgical clips are noted within or overlapping the left paramedian aspect of the mid abdomen. Skin benji are seen in place along the left mid-abdomen. The intestinal bowel gas pattern appears unremarkable. A urinary bladder catheter appears to be in place. Status post median sternotomy. IMPRESSION: No radiopaque foreign body is identified ASSESS: -POD#2 s/p L total nephrectomy -MO -Opiate induced hypercapnia -HTN -HLD -CAD (s/p CABG) -A on C renal Fail -DM -Hypothyroid PLAN: -Elmore Clxr (Post-Op leukocytosis) -Supp FiO2 prn for SpO2 > 92% -nebs -IS -Nocturnal Bi-Level -D/c Ramapril -Gentle diuresis -Daily weights -Strict I's & O's -Trend BUN/Cr -Replete e-lytes prn -FSs -SSI -Cont Synth -Transfer to Med Surg w/ standing nocturnal Bi-Level & Bi-Level prn while on opiate meds for pain -Track Post-Op leukocytosis -Low threshold to start abx -Pt will need an out pt polysomnography -Sx to follow L nephrostomy wound SHERI Peck-BC [facility] ICU PULM/CCM [id number]
[2018-10-01] MEDS ORDERED: PATIENT'S OWN MEDICATION (NON-FORMULARY) (Ramipril [Ramipril] 10 MG) PO SCH (10:00)
[2018-10-01] MEDS ORDERED: metoPROLOL SUCCINATE 25 MG TAB.SR.24H (FP) PO SCH (10:00)
[2018-10-01] MEDS ORDERED: LEVOTHYROXINE NA 150 MCG TABLET PO SCH (10:00)
[2018-10-01] MEDS: ACETAMINOPHEN 650 MG/20.3 ML ORAL SOLUTION (CUPS) PO PRN ×2 (10:45→17:52)
[2018-10-01] MEDS: amLODIPine BESYLATE 5 MG TABLET (FP) PO SCH (10:46)
[2018-10-01] MEDS: MUPIROCIN 2% TOPICAL OINTMENT FOR DECOLONIZATION NS SCH ×2 (10:47→21:17)
[2018-10-01] MEDS ORDERED: DEXMEDETOMIDINE HCL 200 MCG in SODIUM CHLORIDE 48 ML IVPB SCH (21:15)
[2018-10-01] MEDS: ROSUVASTATIN CA 10 MG TABLET (FP) PO SCH (21:16)
[2018-10-01] MEDS: CHLORHEXIDINE GLUCONATE 4% CLEANSER FOR DECOLONIZATION TP SCH (21:17)
[2018-10-01] MEDS: LIDOCAINE PATCH REMOVAL MC SCH (21:18)
[2018-10-02] MEDS: INSULIN SLIDING SCALE (NOVOLOG) 1 VIAL SQ SCH ×4 (06:12→21:21)
[2018-10-02] MEDS: ACETAMINOPHEN 325 MG TABLET (FP) PO PRN ×2 (09:08→20:02)
--- NOTE | 2018-10-02 10:19 | PN ---
Progress Note (short form) - Note Progress Note: PULM/CCM POD#3: s/p L total nephrectomy c/b AMS m/l 2/2 opiate induced hypercapnia Pt seen & examined in ICU. Post-Op leukocytosis defervescing (18 --> 14). Marked improvement in mental status s/p precedex & Bi-Level O/N now pt is requesting to be spoon fed by the ICU nursing staff on demand --> Pt is READY FOR TRANSFER TO THE FLOOR!! Active Medications Acetaminophen (Tylenol -) 650 mg PO Q6H PRN PRN Reason: HEADACHE Last Admin: 10/02/18 09:08 Dose: 650 mg Amlodipine Besylate (Norvasc -) 5 mg PO DAILY [facility] Last Admin: 10/01/18 10:46 Dose: 5 mg Chlorhexidine Gluconate (Hibiclens For Decolonization -) 1 applic TP HS [facility] Last Admin: 10/01/18 21:17 Dose: 1 applic Dexamethasone Sodium Phosphate (Decadron Injection -) 4 mg IVPUSH ONCE PRN PRN Reason: NAUSEA AND/OR VOMITING Dexmedetomidine HCl 200 mcg/ (Sodium Chloride) 50 mls @ 4.42 mls/hr IVPB TITR [facility] Stop: 10/02/18 21:14 Last Infusion: 10/02/18 06:40 Dose: 0 mcg/kg/hr, 0 mls/hr Insulin Aspart (Novolog Vial Sliding Scale -) 1 vial SQ ACHS [facility]; Protocol Last Admin: 10/02/18 06:12 Dose: Not Given Miscellaneous (Lidoderm Patch Removal) 1 each MC DAILY@2200 [facility] Last Admin: 10/01/18 21:18 Dose: Not Given Morphine Sulfate (Morphine Sulfate) 2 mg IVPUSH Q6H PRN PRN Reason: PAIN LEVEL 1-5 Last Admin: 10/01/18 16:35 Dose: 2 mg Mupirocin (Bactroban Ointment (For Decolonization) -) 1 applic NS BID [facility] Stop: 10/05/18 09:59 Last Admin: 10/01/18 21:17 Dose: 1 applic Ondansetron HCl (Zofran Injection) 4 mg IVPUSH Q4H PRN PRN Reason: NAUSEA AND/OR VOMITING Promethazine HCl (Phenergan Injection -) 12.5 mg IVPB Q6H PRN PRN Reason: NAUSEA AND/OR VOMITING Rosuvastatin Calcium (Crestor -) 10 mg PO HS [facility] Last Admin: 10/01/18 21:16 Dose: 10 mg Vital Signs Period Temp Pulse Resp BP Sys/Alves Pulse Ox Last 24 Hr 98.6 F-99.8 F 64-85 15-18 100-160/55-83 95-100 Intake & Output 09/29/18 09/30/18 10/01/18 10/02/18 23:59 23:59 23:59 23:59 Intake Total 3000 2425 320 30.8 Output Total 1670 1450 1100 1200 Balance 1330 975 -780 -1169.2 Weight 88.451 kg 88.632 kg GEN: Elderly obese woman, washed out but much more awake today HEENT: PERRL, an-icteric, MMM PULM: Diminished B/L CV: nml S1 S2, RR, unable to appreciate any G/M/R ABD: Obese, hypoactive BS, S/S N/T N/D X4Q, L Flank dressing C/D/I EXT: + Pulses, WWP X4, (-) edema CBC, BMP 10/01/18 06:26 10/01/18 06:26 ABG Results ABG pH 7.23 (7.35-7.45) L 09/30/18 09:05 ABG pCO2 at Pt Temp 56.6 mmHg (35-45) H 09/30/18 09:05 ABG pO2 at Pt Temp 117 mmHg (80-105) H 09/30/18 09:05 ABG HCO3 23.0 mmol/L (22-27) 09/30/18 09:05 ABG O2 Sat (Measured) 98.4 % (95-98) H 09/30/18 09:05 ABG O2 Content 15.3 % vol (15-22) 09/30/18 09:05 ABG Base Excess -4.5 meq/l (-2-2) L 09/30/18 09:05 RECENT STUDIES TO NOTE: CXR 09/30: A single AP view of the chest reveals sternal sutures and clips, large heart, sclerotic knob and congestive changes. Angles are sharp. The bones and soft tissues are intact. KUB 09/29: No unintentional radiopaque foreign body is seen. Surgical clips are noted within or overlapping the left paramedian aspect of the mid abdomen. Skin benji are seen in place along the left mid-abdomen. The intestinal bowel gas pattern appears unremarkable. A urinary bladder catheter appears to be in place. Status post median sternotomy. IMPRESSION: No radiopaque foreign body is identified ASSESS: -POD#3 s/p L total nephrectomy -MO -Opiate induced hypercapnia -HTN -HLD -CAD (s/p CABG) -A on C renal Fail -DM -Hypothyroid PLAN: -Supp FiO2 prn for SpO2 > 92% -nebs -IS -Cont Nocturnal Bi-Level -D/c Ramapril (Pt in Renal Fail & only has one kidney left) -Gentle diuresis -Daily weights -Strict I's & O's -Trend BUN/Cr -Replete e-lytes prn -FSs -SSI -Cont Synth -Pt will need an out-pt polysomnography -Sx to follow -Transfer to Med Surg w/ standing nocturnal Bi-Level & Bi-Level prn while on opiate meds for Post-Op pain Thank You for this Interesting Consult SHERI Peck-BC [facility] ICU PULM/CCM [id number]
[2018-10-02] MEDS: amLODIPine BESYLATE 5 MG TABLET (FP) PO SCH (10:48)
[2018-10-02] MEDS ORDERED: PT OWN MED DRAWER 7, Y5N ONE ×2 (16:14→21:07)
[2018-10-02] MEDS: MUPIROCIN 2% TOPICAL OINTMENT FOR DECOLONIZATION NS SCH ×2 (16:19→21:10)
[2018-10-02] MEDS: ROSUVASTATIN CA 10 MG TABLET (FP) PO SCH (21:10)
[2018-10-02] MEDS: LIDOCAINE PATCH REMOVAL MC SCH (21:21)
[2018-10-02] MEDS: CHLORHEXIDINE GLUCONATE 4% CLEANSER FOR DECOLONIZATION TP SCH (21:21)
[2018-10-03] MEDS: MORPHINE SULFATE 2 MG/ML VIAL IVPUSH PRN (01:26)
[2018-10-03 06:07] LABS: HEMATOCRIT 33.1 % (32.4-45.2); HEMOGLOBIN 10.8 GM/dL (10.7-15.3); MCH 28.3 pg (25.7-33.7); MCHC 32.5 g/dl (32.0-36.0); MEAN CELL VOLUME 86.9 fl (80-96); MEAN PLT VOLUME 9.2 fl (7.5-11.1); PLATELET COUNT 200 K/MM3 (134-434); RBC 3.81 M/mm3 (3.60-5.2); RDW 14.6 % (11.6-15.6); WHITE BLOOD COUNT 8.7 K/mm3 (4.0-10.0)
[2018-10-03] MEDS: INSULIN SLIDING SCALE (NOVOLOG) 1 VIAL SQ SCH ×4 (06:17→21:51)
[2018-10-03] MEDS: ACETAMINOPHEN 325 MG TABLET (FP) PO PRN ×2 (06:20→16:48)
[2018-10-03 06:26] LABS: BLOOD UREA NITROGEN 24.7 mg/dL (7-18); CALCIUM 8.9 mg/dL (8.5-10.1); CREATININE 1.5 mg/dL (0.55-1.3); MAGNESIUM 2.2 mg/dL (1.8-2.4); PHOSPHOROUS 3.2 mg/dL (2.5-4.9)
--- NOTE | 2018-10-03 07:08 | PN ---
Physical Exam: SUBJECTIVE: Patient seen and examined at bedside this morning. Patient endorses slight pain at incision site. She is tolerating diet with slight nausea, however denies abdominal pain, or vomiting. States that she has not yet passed bowel movement postoperatively. Patient urinating without hematuria, dysuria. Denies subjective fevers, chills, shortness of breath, chest pain, palpitations. OBJECTIVE: Vital Signs Period Temp Pulse Resp BP Sys/Alves Pulse Ox Last 24 Hr 98 F-98.6 F 65-93 16-24 108-169/63-110 95-100 GENERAL: The patient is awake, alert, and fully oriented, in no acute distress. HEAD: Normocephalic, atraumatic. EYES: PERRL, extraocular movements intact, sclera anicteric, conjunctiva clear. ENT: Oropharynx clear without exudates, moist mucous membranes. NECK: Supple without lymphadenopathy LUNGS: Breath sounds equal, clear to auscultation bilaterally, no wheezes, no crackles, no accessory muscle use. HEART: Regular rate and rhythm, S1, S2 without murmur, rub or gallop. ABDOMEN: Obese abdomen. Soft, tender to palpation over surgical site. Normoactive bowel sounds, no guarding, no rebound tenderness. EXTREMITIES: 2+ radial, dorsalis pedis pulses bilateraly. Warm, well-perfused. No edema bilateral lower extremities. NEUROLOGICAL: Cranial nerves II through XII grossly intact. Normal speech PSYCH: Normal mood, normal affect upon my encounter. SKIN: Warm, dry. Surgical site bandaged clean, dry. Laboratory Results - last 24 hr 09/29/18 10/02/18 10/02/18 11:59 12:41 18:25 WBC RBC Hgb Hct MCV MCH MCHC RDW Plt Count MPV Sodium Potassium Chloride Carbon Dioxide Anion Gap BUN Creatinine Est GFR (CKD-EPI)AfAm Est GFR (CKD-EPI)NonAf POC Glucometer 100 90 Random Glucose Calcium Phosphorus Magnesium Blood Type A POSITIVE Antibody Screen Negative Crossmatch See Detail Crossmatch IS Only See Detail 10/02/18 10/03/18 10/03/18 21:19 05:20 05:20 WBC 8.7 RBC 3.81 Hgb 10.8 Hct 33.1 MCV 86.9 MCH 28.3 MCHC 32.5 RDW 14.6 Plt Count 200 D MPV 9.2 D Sodium 142 Potassium 4.0 Chloride 107 Carbon Dioxide 31 Anion Gap 3 L BUN 24.7 H Creatinine 1.5 H Est GFR (CKD-EPI)AfAm 38.28 Est GFR (CKD-EPI)NonAf 33.02 POC Glucometer 129 Random Glucose 95 Calcium 8.9 Phosphorus 3.2 Magnesium 2.2 Blood Type Antibody Screen Crossmatch Crossmatch IS Only 10/03/18 06:12 WBC RBC Hgb Hct MCV MCH MCHC RDW Plt Count MPV Sodium Potassium Chloride Carbon Dioxide Anion Gap BUN Creatinine Est GFR (CKD-EPI)AfAm Est GFR (CKD-EPI)NonAf POC Glucometer 91 Random Glucose Calcium Phosphorus Magnesium Blood Type Antibody Screen Crossmatch Crossmatch IS Only Active Medications Generic Name Dose Route Start Last Admin Trade Name Freq PRN Reason Stop Dose Admin Acetaminophen 650 mg 10/01/18 17:56 10/03/18 06:20 Tylenol - PO 650 mg Q6H PRN Administration HEADACHE Amlodipine Besylate 5 mg 10/01/18 10:00 10/02/18 10:48 Norvasc - PO 5 mg DAILY [facility] Administration Chlorhexidine Gluconate 1 applic 09/30/18 22:00 10/02/18 21:21 Hibiclens For Decolonization - TP 1 applic HS [facility]ЛАН[facility] Administration Dexamethasone Sodium Phosphate 4 mg 09/30/18 17:31 Decadron Injection - IVPUSH ONCE PRN NAUSEA AND/OR VOMITING Insulin Aspart 1 vial 09/30/18 16:30 10/03/18 06:17 Novolog Vial Sliding Scale - SQ Not Given ACHS [facility] Protocol Miscellaneous 1 each 09/30/18 22:00 10/02/18 21:21 Lidoderm Patch Removal MC Not Given DAILY@2200 [facility] Morphine Sulfate 2 mg 09/30/18 20:14 10/03/18 01:26 Morphine Sulfate IVPUSH 2 mg Q6H PRN Administration PAIN LEVEL 1-5 Mupirocin 1 applic 09/30/18 10:00 10/02/18 21:10 Bactroban Ointment (For Decolonization) - NS 10/05/18 09:59 1 applic BID [facility] Administration Ondansetron HCl 4 mg 09/30/18 17:31 10/02/18 16:08 Zofran Injection IVPUSH 4 mg Q4H PRN Administration NAUSEA AND/OR VOMITING Promethazine HCl 12.5 mg 09/30/18 17:31 Phenergan Injection - IVPB Q6H PRN NAUSEA AND/OR VOMITING Rosuvastatin Calcium 10 mg 10/01/18 22:00 10/02/18 21:10 Crestor - PO 10 mg HS [facility] Administration ASSESSMENT/PLAN: Patient is a 78 year old female with history of chronic kidney disease, coronary artery disease s/p CABG, diabetes mellitus, hypertension, hyperlipidemia, hypothyroidism, admitted to ICU due to altered mental status, and hypoxemia s/p left nephrectomy. Neurological -Patient is awake, alert, fully oriented. No acute distress -Monitor for signs of mental status changes. Pulmonary -Patient saturating well on room air -Maintain oxygen saturation greater than 90% Cardiac History of coronary artery disease s/p CABG History of hypertension History of hyperlipidemia -Amlodipine 5mg PO daily -Rosuvastatin 10mg PO HS Endocrine History of diabetes mellitus History of hypothyroidism -Levothyroxine 150mcg PO daily -Insulin sliding scale ACHS -Fingerstick blood glucose ACHS Nephrologic Patient is POD# 4 s/p left sided nephrectomy -Dr. Amaro recommendations appreciated. Hematology -Hb/ Hct stable. Follow CMP FEN -No IV fluids indicated -Within normal limits. Follow CMP, replete as necessary -Diabetic, sodium controlled diet. Prophylaxis -SCDs bilateral lower extremities. Discuss with surgery team regarding any chemical anticoagulation. Disposition -Patient is medically stable for transfer to medical-surgical floor. Requires BiLevel ventilation at night. Visit type - Emergency Visit Emergency Visit: Yes ED Registration Date: 09/29/18 Care time: The patient presented to the Emergency Department on the above date and was hospitalized for further evaluation of their emergent condition. - New Patient This patient is new to me today: Yes Date on this admission: 10/03/18 - Critical Care Critical Care patient: Yes Total Critical Care Time (in minutes): 35 Critical Care Statement: The care of this patient involved high complexity decision making to prevent further life threatening deterioration of the patient 's condition and/or to evaluate & treat vital organ system(s) failure or risk of failure. - Discharge Referral Referred to [facility] Med P.C.: No
[2018-10-03] MEDS: LEVOTHYROXINE NA 75 MCG TABLET (FP) PO SCH (08:46)
[2018-10-03] MEDS: amLODIPine BESYLATE 5 MG TABLET (FP) PO SCH (10:45)
[2018-10-03] MEDS: MUPIROCIN 2% TOPICAL OINTMENT FOR DECOLONIZATION NS SCH (10:46)
--- NOTE | 2018-10-03 11:01 | PN ---
Teaching Attending Note Name of Resident: Connor Bermeo ATTENDING PHYSICIAN STATEMENT I saw and evaluated the patient. I reviewed the resident's note and discussed the case with the resident. I agree with the resident's findings and plan as documented. SUBJECTIVE: Patient seen and examined in the ICU. Awake and alert. NO CP or SOB. Still with discomfort at the surgical site with movement. Intake & Output 09/30/18 10/01/18 10/02/18 10/03/18 23:59 23:59 23:59 23:59 Intake Total 2425 320 790.8 Output Total 1450 1100 2600 450 Balance 975 -780 -1809.2 -450 Weight 195 lb 195 lb 6.4 oz 194 lb 7 oz Last Vital Signs Temp Pulse Resp BP Pulse Ox 98.1 F 81 20 151/91 100 10/03/18 08:04 10/03/18 08:04 10/03/18 08:04 10/03/18 08:04 10/03/18 08:04 Active Medications Acetaminophen (Tylenol -) 650 mg PO Q6H PRN PRN Reason: HEADACHE Last Admin: 10/03/18 06:20 Dose: 650 mg Amlodipine Besylate (Norvasc -) 5 mg PO DAILY [facility] Last Admin: 10/03/18 10:45 Dose: 5 mg Chlorhexidine Gluconate (Hibiclens For Decolonization -) 1 applic TP HS [facility] Last Admin: 10/02/18 21:21 Dose: 1 applic Dexamethasone Sodium Phosphate (Decadron Injection -) 4 mg IVPUSH ONCE PRN PRN Reason: NAUSEA AND/OR VOMITING Insulin Aspart (Novolog Vial Sliding Scale -) 1 vial SQ [facility]; Protocol Last Admin: 10/03/18 06:17 Dose: Not Given Levothyroxine Sodium (Synthroid -) 150 mcg PO DAILY@0700 [facility] Last Admin: 10/03/18 08:46 Dose: 150 mcg Miscellaneous (Lidoderm Patch Removal) 1 each MC DAILY@2200 [facility] Last Admin: 10/02/18 21:21 Dose: Not Given Morphine Sulfate (Morphine Sulfate) 2 mg IVPUSH Q6H PRN PRN Reason: PAIN LEVEL 1-5 Last Admin: 10/03/18 01:26 Dose: 2 mg Mupirocin (Bactroban Ointment (For Decolonization) -) 1 applic NS BID [facility] Stop: 10/05/18 09:59 Last Admin: 10/03/18 10:46 Dose: 1 applic Ondansetron HCl (Zofran Injection) 4 mg IVPUSH Q4H PRN PRN Reason: NAUSEA AND/OR VOMITING Last Admin: 10/02/18 16:08 Dose: 4 mg Promethazine HCl (Phenergan Injection -) 12.5 mg IVPB Q6H PRN PRN Reason: NAUSEA AND/OR VOMITING Rosuvastatin Calcium (Crestor -) 10 mg PO HS [facility] Last Admin: 10/02/18 21:10 Dose: 10 mg GEN: Sleepy but easily arousable, NAD HEENT: PERRL, an-icteric, MMM PULM: Clear CV: S1 S2 ABD: Obese, (+) BS, (+) mild tenderness to palpation, Left flank drain C/D/I EXT: + Pulses, WWP X4, (-) edema Laboratory Results - last 24 hr 09/29/18 10/02/18 10/02/18 11:59 12:41 18:25 WBC RBC Hgb Hct MCV MCH MCHC RDW Plt Count MPV Sodium Potassium Chloride Carbon Dioxide Anion Gap BUN Creatinine Est GFR (CKD-EPI)AfAm Est GFR (CKD-EPI)NonAf POC Glucometer 100 90 Random Glucose Calcium Phosphorus Magnesium Blood Type A POSITIVE Antibody Screen Negative Crossmatch See Detail Crossmatch IS Only See Detail 10/02/18 10/03/18 10/03/18 21:19 05:20 05:20 WBC 8.7 RBC 3.81 Hgb 10.8 Hct 33.1 MCV 86.9 MCH 28.3 MCHC 32.5 RDW 14.6 Plt Count 200 D MPV 9.2 D Sodium 142 Potassium 4.0 Chloride 107 Carbon Dioxide 31 Anion Gap 3 L BUN 24.7 H Creatinine 1.5 H Est GFR (CKD-EPI)AfAm 38.28 Est GFR (CKD-EPI)NonAf 33.02 POC Glucometer 129 Random Glucose 95 Calcium 8.9 Phosphorus 3.2 Magnesium 2.2 Blood Type Antibody Screen Crossmatch Crossmatch IS Only 10/03/18 06:12 WBC RBC Hgb Hct MCV MCH MCHC RDW Plt Count MPV Sodium Potassium Chloride Carbon Dioxide Anion Gap BUN Creatinine Est GFR (CKD-EPI)AfAm Est GFR (CKD-EPI)NonAf POC Glucometer 91 Random Glucose Calcium Phosphorus Magnesium Blood Type Antibody Screen Crossmatch Crossmatch IS Only IMPRESSION: -POD#4 S/P Left total nephrectomy -Obesity -Opiate induced hypercapnia -HTN -HLD -CAD (s/p CABG) -Acute on chronic renal failure -DM -Hypothyroid -Suspected OSAS PLAN: -Supp FiO2 prn for SpO2 > 92% -BD TX PRN -IS -Nocturnal Bi-Level -Will need sleep workup as an outpatient -Daily weights -Strict I's & O's -Trend BUN/Cr -Transfer to Med Surg w/ standing nocturnal Bi-Level & Bi-Level prn while on opiate meds for pain -Track Post-Op leukocytosis -Local wound care -Floor Dr Georges
[2018-10-03 15:24] VITALS: BMI 35.4
[2018-10-03] MEDS ORDERED: DEXAMETHASONE SOD PHOSPHATE 4 MG/1 ML VIAL IVPUSH PRN (15:37)
[2018-10-03] MEDS ORDERED: ONDANSETRON 4 MG/2 ML VIAL IVPUSH PRN (15:37)
[2018-10-03] MEDS ORDERED: PROMETHAZINE HCL 25 MG/1 ML VIAL IVPB PRN (15:37)
[2018-10-03] MEDS ORDERED: MORPHINE SULFATE 2 MG/ML VIAL IVPUSH PRN (15:37)
[2018-10-03] MEDS ORDERED: BISACODYL 10 MG SUPP.RECT RC PRN (16:47)
[2018-10-03] MEDS: POLYETHYLENE GLYCOL 3350 119 GM BTL PO SCH (18:02)
[2018-10-03] MEDS: ROSUVASTATIN CA 10 MG TABLET (FP) PO SCH (21:54)
[2018-10-03] MEDS ORDERED: MUPIROCIN 2% TOPICAL OINTMENT FOR DECOLONIZATION NS SCH (22:00)
[2018-10-03] MEDS ORDERED: CHLORHEXIDINE GLUCONATE 4% CLEANSER FOR DECOLONIZATION TP SCH (22:00)
[2018-10-03] MEDS ORDERED: LIDOCAINE PATCH REMOVAL MC SCH (22:00)
[2018-10-04] MEDS: ACETAMINOPHEN 325 MG TABLET (FP) PO PRN ×2 (01:11→09:56)
[2018-10-04] MEDS: LEVOTHYROXINE NA 75 MCG TABLET (FP) PO SCH (06:03)
[2018-10-04] MEDS: INSULIN SLIDING SCALE (NOVOLOG) 1 VIAL SQ SCH ×4 (06:04→21:13)
--- NOTE | 2018-10-04 07:41 | RAPID ---
Physical Examination Vital Signs: Vital Signs Temperature 97.9 F 10/04/18 02:00 Pulse Rate 65 10/04/18 02:00 Respiratory Rate 20 10/04/18 02:00 Blood Pressure 153/73 10/04/18 02:00 O2 Sat by Pulse Oximetry (%) 99 10/03/18 21:00 Rapid Response - Rapid Response Assessment: Rapid response called to floor after pt found in the bathroom. Per nurse, pt was trying to have a bowel movement in the bathroom when she started feeling lightheaded and dizzy. Afterwards, pt was placed on chair by nursing staff. VS 76/43, repeat with manual 135/80 97% 02 Awake and alert. Responds appropriately to questions. Lungs CTA B/L. RRR. Normal S1, S2. Abd soft, NT/ND. A/P: -CBC/CMP labs already drawn this morning 30 min ago, results pending -Pt placed in Trendelenburg -NS x1L given
[2018-10-04] MEDS ORDERED: SODIUM CHLORIDE 1,000 ML IV STA (07:45)
[2018-10-04 07:59] LABS: HEMATOCRIT 38.1 % (32.4-45.2); HEMOGLOBIN 12.7 GM/dL (10.7-15.3); MCH 28.7 pg (25.7-33.7); MCHC 33.3 g/dl (32.0-36.0); MEAN CELL VOLUME 86.3 fl (80-96); MEAN PLT VOLUME 8.9 fl (7.5-11.1); PLATELET COUNT 246 K/MM3 (134-434); RBC 4.42 M/mm3 (3.60-5.2); RDW 14.3 % (11.6-15.6); WHITE BLOOD COUNT 8.9 K/mm3 (4.0-10.0)
[2018-10-04 08:00] LABS: ALBUMIN 3.2 g/dl (3.4-5.0); BILIRUBIN,TOTAL 0.6 mg/dL (0.2-1); BLOOD UREA NITROGEN 20.9 mg/dL (7-18); CALCIUM 9.2 mg/dL (8.5-10.1); CREATININE 1.5 mg/dL (0.55-1.3); PHOSPHOROUS 3.5 mg/dL (2.5-4.9); TOT PROT 7.3 g/dl (6.4-8.2)
[2018-10-04] MEDS: POLYETHYLENE GLYCOL 3350 119 GM BTL PO SCH (10:00)
[2018-10-04] MEDS: amLODIPine BESYLATE 5 MG TABLET (FP) PO SCH (11:43)
--- NOTE | 2018-10-04 14:15 | PN ---
Progress Note (short form) - Note Progress Note: Patient currently comfortable, with no complaints. Sitting on the bed, on the phone, and eating an apple. Says she feels much better after her BM. She said her dizziness resolved. Patient denies SOB and says she never was short of breath today. During the earlier rapid, patient was maintaining saturation at 96% on RA. Once the probe was initially placed, saturation started at 85% but immediately increased to 96%. Current Vitals: 138/60 HR 73 RR 15
--- NOTE | 2018-10-04 14:16 | PN ---
Progress Note (short form) - Note Progress Note: Patient currently comfortable, with no complaints. Sitting on the bed, on the phone, and eating an apple. Says she feels much better after her BM. She said her dizziness resolved. Patient denies SOB and says she never was short of breath today. During the earlier rapid, patient was maintaining saturation at 96% on RA. Once the probe was initially placed, saturation started at 85% but immediately increased to 96% when probe was appropriately positioned. Current Vitals: 138/60 HR 73 RR 15
[2018-10-04] MEDS ORDERED: diphenhydrAMINE HCL 25 MG CAPSULE (FP) PO ONE (20:55)
[2018-10-04] MEDS: ROSUVASTATIN CA 10 MG TABLET (FP) PO SCH (21:04)
[2018-10-04] MEDS: MAG HYDROX/AL HYDROX/SIMETH 30 ML UNIT-DOSE CUP PO PRN (21:04)
--- NOTE | 2018-10-04 22:18 | HP ---
CHIEF COMPLAINT: s/p L nephrectomy PCP:Dr Caruso HISTORY OF PRESENT ILLNESS: Pt is a 78 yo F with PMHx of HTN, HLD, hypothyroidism, CAD, CKD, DM, CABG at [facility] 2013, s/p L total nephrectomy who was admitted for elective endoscopic L total nephrectomy for a non- functional L kidney. Pt was reported to have frequent nephrolithiases and multiple infections and had failed a L nephrostomy tube insertion on 03/2018. On POD#1 s/p L open total nephrectomy, pt was transferred to ICU for altered mental status and possible bleeding from surgical incision site. In the ICU, pt was assumed to be altered due to opiate overdose and was recommended for bilevel at night and PRN. Today, on the floors, a rapid response was called when patient was found hypotensive (76/43, repeat - 135/80) in the bathroom, after feeling light headed and dizzy while trying to have a bowel movement.We were asked to take over her care from surgical service (Dr Amaro). Today, the pt is complaining of generalized body itch (around the alert bands) and received benadryl with improvement. 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 Smoking:Stopped 1978 Alcohol:Denies Drugs: Denies Family History: Allergies No Known Drug Allergies Allergy (Verified 09/29/18 12:35) aspirin Adverse Reaction (Verified 09/29/18 12:35) "arguelles my stomach" HOME MEDICATIONS: Home Medications Medication Instructions Recorded Amlodipine Besylate [Norvasc -] 5 mg PO DAILY 09/28/18 Aspirin [ASA -] 81 mg PO DAILY 09/28/18 Fexofenadine HCl [Iliana Allergy] 60 mg PO PRN PRN 09/28/18 Levothyroxine [Synthroid -] 150 mcg PO DAILY 09/28/18 Metoprolol Succinate [Toprol Xl] 25 mg PO DAILY 09/28/18 Ramipril 10 mg PO DAILY 09/28/18 Rosuvastatin Calcium [Crestor] 10 mg PO DAILY 09/28/18 REVIEW OF SYSTEMS CONSTITUTIONAL: Absent: fever, chills, diaphoresis, generalized weakness, malaise, loss of appetite, weight change HEENT: Absent: rhinorrhea, nasal congestion, throat pain, throat swelling, difficulty swallowing, mouth swelling, ear pain, eye pain, visual changes CARDIOVASCULAR: Absent: chest pain, syncope, palpitations, irregular heart rate, lightheadedness , peripheral edema RESPIRATORY: Absent: cough, shortness of breath, dyspnea with exertion, orthopnea, wheezing, stridor, hemoptysis GASTROINTESTINAL:constipation+, abdominal discomfort Absent: abdominal pain, abdominal distension, nausea, vomiting, diarrhea, melena, hematochezia GENITOURINARY: Absent: dysuria, frequency, urgency, hesitancy, hematuria, flank pain, genital pain MUSCULOSKELETAL: Absent: myalgia, arthralgia, joint swelling, back pain, neck pain SKIN: Absent: rash, itching, pallor HEMATOLOGIC/IMMUNOLOGIC: Absent: easy bleeding, easy bruising, lymphadenopathy, frequent infections ENDOCRINE: Absent: unexplained weight gain, unexplained weight loss, heat intolerance, cold intolerance NEUROLOGIC: Absent: headache, focal weakness or paresthesias, dizziness, unsteady gait, seizure, mental status changes, bladder or bowel incontinence PSYCHIATRIC: Absent: anxiety, depression, suicidal or homicidal ideation, hallucinations. PHYSICAL EXAMINATION Vital Signs - 24 hr 10/04/18 10/04/18 10/04/18 02:00 06:00 07:35 Temperature 97.9 F 97.6 F Pulse Rate 65 71 78 Respiratory 20 20 20 Rate Blood Pressure 153/73 153/93 76/43 L O2 Sat by Pulse Oximetry (%) 10/04/18 10/04/18 10/04/18 07:40 07:45 08:30 Temperature Pulse Rate 129 H 72 72 Respiratory 20 20 20 Rate Blood Pressure 84/38 L 132/80 134/78 O2 Sat by Pulse Oximetry (%) 10/04/18 10/04/18 10/04/18 09:50 10:00 11:40 Temperature 98.5 F Pulse Rate 65 Respiratory 20 Rate Blood Pressure 147/50 L O2 Sat by Pulse 97 98 Oximetry (%) 10/04/18 10/04/18 15:00 18:30 Temperature 98.7 F 98.6 F Pulse Rate 80 80 Respiratory 18 20 Rate Blood Pressure 158/86 156/84 O2 Sat by Pulse Oximetry (%) GENERAL: Obeser female, Awake, alert, and fully oriented, in no acute distress. HEAD: Normal with no signs of trauma. EYES: Pupils equal, round and reactive to light, arcus senilis, extraocular movements intact, sclera anicteric, conjunctiva clear. EARS, NOSE, THROAT: Ears normal, nares patent, oropharynx clear without exudates. Moist mucous membranes. NECK: Normal range of motion, supple LUNGS: Breath sounds equal, clear to auscultation bilaterally. No wheezes, and no crackles. HEART: Regular rate and rhythm, normal S1 and S2 without murmur ABDOMEN: Soft, nontender, not distended, normoactive bowel sounds, mild voluntary guarding, no rebound, no masses. l flank surgical dressing clean dry, overlying recent surgical wound clean dry with well apposed edges. Appropriate tenderness MUSCULOSKELETAL: Normal range of motion at all joints. No bony deformities or tenderness. LOWER EXTREMITIES: 2+ pulses, warm, well-perfused. No calf tenderness. No peripheral edema. NEUROLOGICAL: Cranial nerves II-XII intact. Normal speech. Normal gait. PSYCHIATRIC: Cooperative. Good eye contact. Appropriate mood and affect. SKIN: Warm, dry, normal turgor, no rashes or lesions noted, normal capillary refill. Laboratory Results - last 24 hr 10/04/18 10/04/18 10/04/18 06:01 07:10 07:10 WBC 8.9 RBC 4.42 Hgb 12.7 Hct 38.1 D MCV 86.3 MCH 28.7 MCHC 33.3 RDW 14.3 Plt Count 246 D MPV 8.9 Sodium 141 Potassium 4.0 Chloride 106 Carbon Dioxide 28 Anion Gap 7 L BUN 20.9 H Creatinine 1.5 H Est GFR (CKD-EPI)AfAm 38.28 Est GFR (CKD-EPI)NonAf 33.02 POC Glucometer 146 Random Glucose 150 H Calcium 9.2 Phosphorus 3.5 Magnesium 2.0 Total Bilirubin 0.6 AST 83 H ALT 71 H Alkaline Phosphatase 99 Total Protein 7.3 Albumin 3.2 L 10/04/18 10/04/18 10/04/18 07:37 11:46 17:42 WBC RBC Hgb Hct MCV MCH MCHC RDW Plt Count MPV Sodium Potassium Chloride Carbon Dioxide Anion Gap BUN Creatinine Est GFR (CKD-EPI)AfAm Est GFR (CKD-EPI)NonAf POC Glucometer 160 93 102 Random Glucose Calcium Phosphorus Magnesium Total Bilirubin AST ALT Alkaline Phosphatase Total Protein Albumin 10/04/18 21:12 WBC RBC Hgb Hct MCV MCH MCHC RDW Plt Count MPV Sodium Potassium Chloride Carbon Dioxide Anion Gap BUN Creatinine Est GFR (CKD-EPI)AfAm Est GFR (CKD-EPI)NonAf POC Glucometer 147 Random Glucose Calcium Phosphorus Magnesium Total Bilirubin AST ALT Alkaline Phosphatase Total Protein Albumin Prior Echo 04/2018: LVH, normal LV function, LA enlargement, mitral annular calcification, mild mitral regurgitation, fibrocalcific disease of aortic valve CXR- ABD Xray- No foreign bodies Ambulatory Orders Amlodipine Besylate [Norvasc -] 5 mg PO DAILY 09/28/18 Aspirin [ASA -] 81 mg PO DAILY 09/28/18 Fexofenadine HCl [Iliana Allergy] 60 mg PO PRN PRN 09/28/18 Levothyroxine [Synthroid -] 150 mcg PO DAILY 09/28/18 Metoprolol Succinate [Toprol Xl] 25 mg PO DAILY 09/28/18 Ramipril 10 mg PO DAILY 09/28/18 Rosuvastatin Calcium [Crestor] 10 mg PO DAILY 09/28/18 Current Medications Acetaminophen (Tylenol -) 650 mg PO Q6H PRN PRN Reason: HEADACHE Last Admin: 10/04/18 09:56 Dose: 650 mg Al Hydroxide/Mg Hydroxide (Mylanta Oral Suspension -) 30 ml PO Q6H PRN PRN Reason: DYSPEPSIA Last Admin: 10/04/18 21:04 Dose: 30 ml Amlodipine Besylate (Norvasc -) 5 mg PO DAILY [facility] Last Admin: 10/04/18 11:43 Dose: 5 mg Bisacodyl (Dulcolax Suppository -) 10 mg RC DAILY PRN PRN Reason: CONSTIPATION Last Admin: 10/04/18 06:03 Dose: 10 mg Insulin Aspart (Novolog Vial Sliding Scale -) 1 vial SQ [facility]; Protocol Last Admin: 10/04/18 21:13 Dose: Not Given Levothyroxine Sodium (Synthroid -) 150 mcg PO DAILY@0700 [facility] Last Admin: 10/04/18 06:03 Dose: 150 mcg Morphine Sulfate (Morphine Sulfate) 2 mg IVPUSH Q6H PRN PRN Reason: PAIN LEVEL 1-5 Last Admin: 10/03/18 21:54 Dose: 2 mg Polyethylene Glycol (Miralax (For Daily Use) -) 17 gm PO DAILY [facility] Last Admin: 10/04/18 10:00 Dose: 17 grams Rosuvastatin Calcium (Crestor -) 10 mg PO HS [facility] Last Admin: 10/04/18 21:04 Dose: 10 mg ASSESSMENT/PLAN: Patient is a 78 year old female with history of chronic kidney disease, coronary artery disease s/p CABG, diabetes mellitus, hypertension, hyperlipidemia, hypothyroidism, admitted to ICU due to altered mental status, and hypoxemia s/p left nephrectomy. AMS - Appears to have resolved likely due to opiate use postop -Patient is awake, alert, fully oriented. No acute distress -Monitor for signs of mental status changes. Possible KRISSY -For outpt sleep study -Patient saturating well on room air -Maintain oxygen saturation greater than 90% -Pt on nocturnal bipap standing and prn Abdominal Discomfort -Pt denies pain at surgical site -Had been constipated prior, had bowel movements after hypotensive episode in am -Received mylanta, on miralax, with docusate, may consider adding senna CAD hx s/p CABG/HTN/HLD -Pt noted to be hypotensive today, requiring fluid bolus -Amlodipine 5mg PO daily, consider increasing to 10mg daily as Pt reported to be hypertensive up to 170s overnight -Rosuvastatin 10mg PO HS -For orthostatic BP measurements in am Itching - Pt with itching around alert bands, recieved benadryl with relief History of diabetes mellitus -Insulin sliding scale ACHS -Fingerstick blood glucose ACHS History of hypothyroidism -Levothyroxine 150mcg PO daily Renal Patient is POD# 5 s/p left sided nephrectomy -Site clean and dry, no drainage or erythema, continue local dressing -Dr. Amaro recommendations appreciated. Hematology -Hb/ Hct stable. Follow CMP FEN -Received ivf in am for hypotension, no standing fluids -Within normal limits. Follow CMP, replete as necessary -Diabetic, sodium controlled diet. Prophylaxis -SCDs bilateral lower extremities. Discuss with surgery team regarding any chemical anticoagulation. Disposition Visit type - Emergency Visit Emergency Visit: Yes ED Registration Date: 09/29/18 Care time: The patient presented to the Emergency Department on the above date and was hospitalized for further evaluation of their emergent condition. - New Patient This patient is new to me today: Yes Date on this admission: 10/04/18 - Critical Care Critical Care patient: No
--- NOTE | 2018-10-04 22:21 | PN ---
Teaching Attending Note Name of Resident: Tonya Hawkins ATTENDING PHYSICIAN STATEMENT I saw and evaluated the patient. I reviewed the resident's note and discussed the case with the resident. I agree with the resident's findings and plan as documented. SUBJECTIVE: Seen and examined; thank you Dr. Amaro for allowing [place] to take part in the ongoing management of your patients. Briefly, this is a 78 y/o female known to me from rapid response who was transferred to the floor from the ICU. We will be assuming care. Please see ICU notes, etc. for summary of events thus far. Currently she has no complaints; she is afebrile and hemodynamcially stable. BiPap noted. No bleeding. Pain is controlled. Rapid events this AM noted. 10 sys ROS done and negative aside from HPI PMH, PSH, FH, SH reviewed Home Medications Medication Instructions Recorded Amlodipine Besylate [Norvasc -] 5 mg PO DAILY 09/28/18 Aspirin [ASA -] 81 mg PO DAILY 09/28/18 Fexofenadine HCl [Iliana Allergy] 60 mg PO PRN PRN 09/28/18 Levothyroxine [Synthroid -] 150 mcg PO DAILY 09/28/18 Metoprolol Succinate [Toprol Xl] 25 mg PO DAILY 09/28/18 Ramipril 10 mg PO DAILY 09/28/18 Rosuvastatin Calcium [Crestor] 10 mg PO DAILY 09/28/18 OBJECTIVE: VS, labs, imaging reviewed NAD, AAO, resting in bed NC AT EOMI PERRLA RRR s1/2 no mgr Lungs CTAB, w/ sym exp Dressing c/d/i; NT ND +BS CN2-12 wnl, no fnd Normal mood, appropriate behavior. EKG reviewed Imaging reviewe ASSESSMENT AND PLAN: Patient is POD#[address] Amaro; appreciate being able to take part in the ongoing management of this patient. 1) POD#5 s/p L-total nephrectomy -Dressing c/d/i; no new issues. -Monitor CBC, wound checks. Final recs per urology. 2) HTN hx with relative hypotension during rapid response -Continue amlodipine 5; consider increasing to 10 given trending in 160s but will proceed cautiously due to this AM instance. Will check orthostatics in AM and continue BP for now. DOcumented as being on toprol xl 25 and ramipril 10 3) Hx HLD -Continue statin 4) Hx Obesity -[employer] prior to DC 5) CAD s/p CABG -Continue current management 6) Suspected KRISSY -Continue curretn management; refer for sleep study prior to DC 7) Hypothyroid -Continue LT4 8) Opiate-induced hypercapnia -Resolved
[2018-10-05] MEDS: ACETAMINOPHEN 325 MG TABLET (FP) PO PRN ×2 (01:04→19:16)
[2018-10-05] MEDS ORDERED: amLODIPine BESYLATE 5 MG TABLET (FP) PO ONE (01:24)
[2018-10-05] MEDS: MAG HYDROX/AL HYDROX/SIMETH 30 ML UNIT-DOSE CUP PO PRN ×2 (05:28→21:30)
[2018-10-05] MEDS ORDERED: ACETAMINOPHEN 325 MG TABLET (FP) PO ONE (05:45)
[2018-10-05] MEDS: LEVOTHYROXINE NA 75 MCG TABLET (FP) PO SCH (06:04)
[2018-10-05] MEDS: INSULIN SLIDING SCALE (NOVOLOG) 1 VIAL SQ SCH ×4 (06:04→21:34)
[2018-10-05 08:01] LABS: BILIRUBIN,TOTAL 0.5 mg/dL (0.2-1); BLOOD UREA NITROGEN 15.5 mg/dL (7-18); CALCIUM 9.1 mg/dL (8.5-10.1); CREATININE 1.4 mg/dL (0.55-1.3); POTASSIUM 3.7 mmol/L (3.5-5.1); TOT PROT 6.5 g/dl (6.4-8.2)
[2018-10-05 08:20] LABS: INR 1.06 (0.83-1.09); PROTHROMBIN TIME (PATIENT) 12.5 SEC (9.7-13.0)
[2018-10-05 08:22] LABS: BASO % 0.3 % (0-2.0); EOS % 1.4 % (0-4.5); HEMOGLOBIN 11.9 GM/dL (10.7-15.3); LYMPH % 17.5 % (8-40); MCH 28.6 pg (25.7-33.7); MCHC 33.1 g/dl (32.0-36.0); MEAN CELL VOLUME 86.4 fl (80-96); MEAN PLT VOLUME 8.8 fl (7.5-11.1); MONO % 12.6 % (3.8-10.2); NEUT % 68.2 % (42.8-82.8); PLATELET COUNT 253 K/MM3 (134-434); RBC 4.16 M/mm3 (3.60-5.2); WHITE BLOOD COUNT 8.8 K/mm3 (4.0-10.0)
[2018-10-05] MEDS ORDERED: ACETAMINOPHEN 325 MG TABLET (FP) PO PRN (10:49)
[2018-10-05] MEDS: amLODIPine BESYLATE 5 MG TABLET (FP) PO SCH (10:59)
[2018-10-05] MEDS: POLYETHYLENE GLYCOL 3350 119 GM BTL PO SCH (10:59)
[2018-10-05] MEDS: RANITIDINE HCL 150 MG TABLET (FP) PO SCH (11:50)
--- NOTE | 2018-10-05 13:15 | PN ---
Physical Exam: SUBJECTIVE: Patient seen and examined at bedside. Pt states she has mild abd pain diffuse across lower abdominal. Denies n/v, sob, cp, f/c. No other events overnight. OBJECTIVE: Vital Signs Temperature 99 F 10/05/18 06:00 Pulse Rate 88 10/05/18 12:35 Respiratory Rate 18 10/05/18 12:35 Blood Pressure 148/102 H 10/05/18 12:35 O2 Sat by Pulse Oximetry (%) 99 10/05/18 08:36 GENERAL: Obese. female, Awake, alert, and fully oriented, in no acute distress. HEENT: AT/NC. EOMI. Dry mucus membranes. NECK: Normal range of motion, supple LUNGS: CTA B/L. No wheezes noted. HEART: Regular rate and rhythm, normal S1 and S2 without murmur ABDOMEN: +mild TTP across lower abd, no rebound tenderness or guarding. +BS MUSCULOSKELETAL: Dressing on L flank c/d/i LOWER EXTREMITIES: 2+ pulses, warm, well-perfused. No calf tenderness. No peripheral edema. NEUROLOGICAL: Responds to commands. SKIN: Warm, dry, normal turgor, no rashes or lesions noted, normal capillary refill. CBCD WBC 8.8 K/mm3 (4.0-10.0) 10/05/18 06:36 RBC 4.16 M/mm3 (3.60-5.2) 10/05/18 06:36 Hgb 11.9 GM/dL (10.7-15.3) 10/05/18 06:36 Hct 36.0 % (32.4-45.2) 10/05/18 06:36 MCV 86.4 fl (80-96) 10/05/18 06:36 MCHC 33.1 g/dl (32.0-36.0) 10/05/18 06:36 RDW 14.0 % (11.6-15.6) 10/05/18 06:36 Plt Count 253 K/MM3 (134-434) 10/05/18 06:36 MPV 8.8 fl (7.5-11.1) 10/05/18 06:36 CMP Sodium 140 mmol/L (136-145) 10/05/18 06:36 Potassium 3.7 mmol/L (3.5-5.1) 10/05/18 06:36 Chloride 105 mmol/L (98-107) 10/05/18 06:36 Carbon Dioxide 27 mmol/L (21-32) 10/05/18 06:36 Anion Gap 8 MMOL/L (8-16) 10/05/18 06:36 BUN 15.5 mg/dL (7-18) 10/05/18 06:36 Creatinine 1.4 mg/dL (0.55-1.3) H 10/05/18 06:36 Calcium 9.1 mg/dL (8.5-10.1) 10/05/18 06:36 Total Bilirubin 0.5 mg/dL (0.2-1) 10/05/18 06:36 AST 48 U/L (15-37) H 10/05/18 06:36 ALT 54 U/L (13-61) 10/05/18 06:36 Alkaline Phosphatase 86 U/L (45-117) 10/05/18 06:36 Total Protein 6.5 g/dl (6.4-8.2) 10/05/18 06:36 Albumin 3.0 g/dl (3.4-5.0) L 10/05/18 06:36 Active Medications Acetaminophen (Tylenol -) 650 mg PO Q6H PRN PRN Reason: HEADACHE Last Admin: 10/05/18 01:04 Dose: 650 mg Acetaminophen (Tylenol -) 650 mg PO Q6H PRN PRN Reason: PAIN 1-3 Al Hydroxide/Mg Hydroxide (Mylanta Oral Suspension -) 30 ml PO Q6H PRN PRN Reason: DYSPEPSIA Last Admin: 10/05/18 05:28 Dose: 30 ml Amlodipine Besylate (Norvasc -) 5 mg PO DAILY [facility] Last Admin: 10/05/18 10:59 Dose: 5 mg Bisacodyl (Dulcolax Suppository -) 10 mg RC DAILY PRN PRN Reason: CONSTIPATION Last Admin: 10/04/18 06:03 Dose: 10 mg Insulin Aspart (Novolog Vial Sliding Scale -) 1 vial SQ [facility]; Protocol Last Admin: 10/05/18 12:16 Dose: Not Given Levothyroxine Sodium (Synthroid -) 150 mcg PO DAILY@0700 [facility] Last Admin: 10/05/18 06:04 Dose: 150 mcg Metoprolol Succinate (Toprol Xl -) 25 mg PO DAILY [facility] Morphine Sulfate (Morphine Sulfate) 2 mg IVPUSH Q6H PRN PRN Reason: PAIN LEVEL 1-5 Last Admin: 10/03/18 21:54 Dose: 2 mg Polyethylene Glycol (Miralax (For Daily Use) -) 17 gm PO DAILY [facility] Last Admin: 10/05/18 10:59 Dose: 17 grams Ranitidine HCl (Zantac -) 150 mg PO DAILY [facility] Last Admin: 10/05/18 11:50 Dose: 150 mg Rosuvastatin Calcium (Crestor -) 10 mg PO HS [facility] Last Admin: 10/04/18 21:04 Dose: 10 mg ASSESSMENT/PLAN: 78F with history of chronic kidney disease, coronary artery disease s/p CABG, diabetes mellitus, hypertension, hyperlipidemia, hypothyroidism, admitted to ICU due to altered mental status, and hypoxemia s/p left nephrectomy. #S/p L side nephrectomy, POD #6 -dressing c/d/i; no new issues -f/u recs (Dr. Amaro) #HTN; Random spikes in BP -Currently on Norvasc 5 QD, will add home med Toprol XL 25 QD -cont to monitor BP #Possible KRISSY -For outpt sleep study -Patient saturating well on room air -Maintain oxygen saturation greater than 90% -Pt on nocturnal bipap standing and prn #CAD hx s/p CABG/HTN/HLD; Cont home med: Crestor 10 HS #History of diabetes mellitus; BGM/ISS ACHS #Hypothyroidism; Cont home med: Levothyroxine 150mcg PO daily #FEN -Received ivf in am for hypotension, no standing fluids -Within normal limits. Follow CMP, replete as necessary -Diabetic, sodium controlled diet. #Ppx -SCDs Dispo -Patient is clear from medical standpoint. Please re-consult if further medical evaluation if needed. Thank you for this consultative opportunity. Visit type - Emergency Visit Emergency Visit: Yes ED Registration Date: 09/29/18 Care time: The patient presented to the Emergency Department on the above date and was hospitalized for further evaluation of their emergent condition. - New Patient This patient is new to me today: Yes Date on this admission: 10/05/18 - Critical Care Critical Care patient: No
[2018-10-05] MEDS: metoPROLOL SUCCINATE 25 MG TAB.SR.24H (FP) PO SCH (13:23)
--- NOTE | 2018-10-05 15:16 | PN ---
Teaching Attending Note Name of Resident: Olya Moore ATTENDING PHYSICIAN STATEMENT I saw and evaluated the patient. I reviewed the resident's note and discussed the case with the resident. I agree with the resident's findings and plan as documented. SUBJECTIVE: Feels well, complains of mild epigastric burning and headache. No fever/chills/photophobia/neck stiffness/double vision. No nausea/vomiting/ diarrhea/melena/hematochezia. OBJECTIVE: Afebrile, Hemodynamically Stable. Last Vital Signs Temp Pulse Resp BP Pulse Ox 99 F 89 18 133/80 99 10/05/18 06:00 10/05/18 13:50 10/05/18 12:35 10/05/18 13:50 10/05/18 11:45 HEENT - Atraumatic, Normocephalic Heart - S1, S2, RRR Lungs - clear to auscultation Abdomen - Soft, mild epigastric tenderness. L Flank - Surgical Dressing in place - site appears clean. Bowel Sounds normal. Extremities - no edema, no calf tenderness. Laboratory Results - last 24 hr 10/04/18 10/04/18 10/05/18 17:42 21:12 05:40 WBC RBC Hgb Hct MCV MCH MCHC RDW Plt Count MPV Absolute Neuts (auto) Neutrophils % Lymphocytes % Monocytes % Eosinophils % Basophils % Nucleated RBC % PT with INR INR PTT (Actin FS) Sodium Potassium Chloride Carbon Dioxide Anion Gap BUN Creatinine Est GFR (CKD-EPI)AfAm Est GFR (CKD-EPI)NonAf POC Glucometer 102 147 132 Random Glucose Calcium Magnesium Total Bilirubin AST ALT Alkaline Phosphatase Total Protein Albumin 10/05/18 10/05/18 10/05/18 06:36 06:36 06:36 WBC 8.8 RBC 4.16 Hgb 11.9 Hct 36.0 MCV 86.4 MCH 28.6 MCHC 33.1 RDW 14.0 Plt Count 253 MPV 8.8 Absolute Neuts (auto) 6.0 Neutrophils % 68.2 D Lymphocytes % 17.5 D Monocytes % 12.6 H Eosinophils % 1.4 D Basophils % 0.3 Nucleated RBC % 0 PT with INR 12.50 INR 1.06 PTT (Actin FS) 26.0 Sodium 140 Potassium 3.7 Chloride 105 Carbon Dioxide 27 Anion Gap 8 BUN 15.5 Creatinine 1.4 H Est GFR (CKD-EPI)AfAm 41.61 Est GFR (CKD-EPI)NonAf 35.90 POC Glucometer Random Glucose 133 H Calcium 9.1 Magnesium 2.0 Total Bilirubin 0.5 AST 48 H ALT 54 Alkaline Phosphatase 86 Total Protein 6.5 Albumin 3.0 L 10/05/18 12:03 WBC RBC Hgb Hct MCV MCH MCHC RDW Plt Count MPV Absolute Neuts (auto) Neutrophils % Lymphocytes % Monocytes % Eosinophils % Basophils % Nucleated RBC % PT with INR INR PTT (Actin FS) Sodium Potassium Chloride Carbon Dioxide Anion Gap BUN Creatinine Est GFR (CKD-EPI)AfAm Est GFR (CKD-EPI)NonAf POC Glucometer 119 Random Glucose Calcium Magnesium Total Bilirubin AST ALT Alkaline Phosphatase Total Protein Albumin Current Medications Generic Name Dose Route Start Last Admin Trade Name Freq PRN Reason Stop Dose Admin Acetaminophen 650 mg 10/03/18 15:37 10/05/18 01:04 Tylenol - PO 650 mg Q6H PRN Administration HEADACHE Acetaminophen 650 mg 10/05/18 10:49 Tylenol - PO Q6H PRN PAIN 1-3 Al Hydroxide/Mg Hydroxide 30 ml 10/04/18 20:54 10/05/18 05:28 Mylanta Oral Suspension - PO 30 ml Q6H PRN Administration DYSPEPSIA Amlodipine Besylate 5 mg 10/04/18 10:00 10/05/18 10:59 Norvasc - PO 5 mg DAILY СВЕТЛАНА Administration Bisacodyl 10 mg 10/03/18 16:47 10/04/18 06:03 Dulcolax Suppository - RC 10 mg DAILY PRN Administration CONSTIPATION Insulin Aspart 1 vial 10/03/18 16:30 10/05/18 12:16 Novolog Vial Sliding Scale - SQ Not Given ACHS [facility] Protocol Levothyroxine Sodium 150 mcg 10/03/18 09:00 10/05/18 06:04 Synthroid - PO 150 mcg DAILY@0700 СВЕТЛАНА Administration Metoprolol Succinate 25 mg 10/05/18 13:00 10/05/18 13:23 Toprol Xl - PO 25 mg DAILY СВЕТЛАНА Administration Morphine Sulfate 2 mg 10/03/18 15:37 10/03/18 21:54 Morphine Sulfate IVPUSH 2 mg Q6H PRN Administration PAIN LEVEL 1-5 Polyethylene Glycol 17 gm 10/03/18 17:00 10/05/18 10:59 Miralax (For Daily Use) - PO 17 grams DAILY СВЕТЛАНА Administration Ranitidine HCl 150 mg 10/05/18 11:00 10/05/18 11:50 Zantac - PO 150 mg DAILY СВЕТЛАНА Administration Rosuvastatin Calcium 10 mg 10/03/18 22:00 10/04/18 21:04 Crestor - PO 10 mg HS СВЕТЛАНА Administration Home Medications Medication Instructions Recorded Amlodipine Besylate [Norvasc -] 5 mg PO DAILY 09/28/18 Aspirin [ASA -] 81 mg PO DAILY 09/28/18 Fexofenadine HCl [Iliana Allergy] 60 mg PO PRN PRN 09/28/18 Levothyroxine [Synthroid -] 150 mcg PO DAILY 09/28/18 Metoprolol Succinate [Toprol Xl] 25 mg PO DAILY 09/28/18 Ramipril 10 mg PO DAILY 09/28/18 Rosuvastatin Calcium [Crestor] 10 mg PO DAILY 09/28/18 ASSESSMENT AND PLAN: 78 year old female with history of HTN, HLD, Hypothyroidism, CKD 3, DM 2, CAD s/ p CABG 2012, Hx of Nephrolithisis and recurrent UTIs, POD 6 s/p L Nephrectomy for non-functioning kidney. Post op course complicated by encephalopathy secondary to opiate analgesia Medicine service was consulted after rapid response was called for hypotension/ lightheadedness while straining on the toilet - likely sec to vasovagal episode , now resolved. 1) POD #6 s/p L-total nephrectomy Surgical Site clean. H/H stable. Further managment as per Urology 2) HTN - Continue amlodipine 5mg and Toprol. For slow re-introduction of JOSHUA-I as out-patient. 3) HLD - Continue Statin 4) CAD s/p CABG - Continue BB. Should resume Aspirin once surgically cleared to do so. 5) Hypothyroid -Continue Synthroid Medically Stable. Will need close out-patient follow up for BP management and reintroduction of ACEI. Aspirin once surgically cleared to resume. Thank you for the consideration of this consultation.
--- NOTE | 2018-10-05 16:36 | PN ---
ANGELA Hyman Note Chief Complaint: pt w/o c/o POD # 6 s/p L nephrx, + BM - Objective Vital Signs: Vital Signs Temperature 97.9 F 10/05/18 15:14 Pulse Rate 92 H 10/05/18 15:45 Respiratory Rate 18 10/05/18 15:45 Blood Pressure 150/90 10/05/18 15:45 O2 Sat by Pulse Oximetry (%) 99 10/05/18 16:03 Respiratory: Yes: WNL Gastrointestinal: Yes: WNL, Normal Bowel Sounds, Soft (wounds clean and dry) Genitourinary: Yes: WNL Kidneys: Yes: WNL Pelvis: Yes: WNL External Genitalia: Yes: WNL Labs/Additional Data: CBC, BMP 10/05/18 06:36 10/05/18 06:36 INR, PTT INR 1.06 (0.83-1.09) 10/05/18 06:36 Blood Type Blood Type A POSITIVE 09/29/18 13:15 Antibody Screen Negative 09/29/18 11:59 Problem List - Problems (1) SOB (shortness of breath) Code(s): R06.02 - SHORTNESS OF BREATH (2) S/p nephrectomy Assessment/Plan: will start PT and anticipate disch in AM 10/06 Code(s): Z90.5 - ACQUIRED ABSENCE OF KIDNEY (3) HTN (hypertension) Code(s): I10 - ESSENTIAL (PRIMARY) HYPERTENSION
--- NOTE | 2018-10-05 16:52 | DS ---
Physical Examination Vital Signs: Vital Signs Temperature 97.9 F 10/05/18 15:14 Pulse Rate 92 H 10/05/18 15:45 Respiratory Rate 18 10/05/18 15:45 Blood Pressure 150/90 10/05/18 15:45 O2 Sat by Pulse Oximetry (%) 99 10/05/18 16:03 Constitutional: Yes: Well Nourished HENT: Yes: WNL Cardiovascular: Yes: WNL Respiratory: Yes: WNL Gastrointestinal: Yes: WNL Renal/: Yes: CVA Tenderness - Left Wound/Incision: Yes: Clean/Dry, Well Approximated, Benji Intact Labs: CBC, BMP 10/05/18 06:36 10/05/18 06:36 Discharge Summary Reason For Visit: NON FUNCTIONING KIDNEY Current Active Problems HTN (hypertension) (Acute) S/p nephrectomy (Acute) SOB (shortness of breath) (Acute) hypercarbic respiratory failure Hospital Course: iv abxs, BP control, PT, diuresis Condition: Stable - Instructions Diet, Activity, Other Instructions: low sodium, renal diet, rx augmentin 500 mg po bid, f/u in 1 week to remove benji Referrals: Tom Amaro MD [Staff Physician] - Disposition: HOME - Home Medications Comprehensive Discharge Medication List: Ambulatory Orders Amlodipine Besylate [Norvasc -] 5 mg PO DAILY 09/28/18 Aspirin [ASA -] 81 mg PO DAILY 09/28/18 Fexofenadine HCl [Iliana Allergy] 60 mg PO PRN PRN 09/28/18 Levothyroxine [Synthroid -] 150 mcg PO DAILY 09/28/18 Metoprolol Succinate [Toprol Xl] 25 mg PO DAILY 09/28/18 Ramipril 10 mg PO DAILY 09/28/18 Rosuvastatin Calcium [Crestor] 10 mg PO DAILY 09/28/18 Amoxicillin/Potassium Clav [Augmentin 500-125 Tablet] 1 each PO BID 7 Days #14 tablet 10/05/18
[2018-10-05] MEDS ORDERED: MORPHINE SULFATE 2 MG/ML VIAL SQ ONE (20:44)
[2018-10-05] MEDS ORDERED: INSULIN (NOVOLOG) ASPART 100 UNITS/ML 10ML VIAL ONE (21:27)
[2018-10-05] MEDS: ROSUVASTATIN CA 10 MG TABLET (FP) PO SCH (21:30)
[2018-10-06] MEDS: ACETAMINOPHEN 325 MG TABLET (FP) PO PRN (01:29)
[2018-10-06] MEDS: INSULIN SLIDING SCALE (NOVOLOG) 1 VIAL SQ SCH ×2 (06:21→12:30)
[2018-10-06] MEDS: LEVOTHYROXINE NA 75 MCG TABLET (FP) PO SCH (06:21)
[2018-10-06] MEDS: amLODIPine BESYLATE 5 MG TABLET (FP) PO SCH (10:38)
[2018-10-06] MEDS: metoPROLOL SUCCINATE 25 MG TAB.SR.24H (FP) PO SCH (10:38)
[2018-10-06] MEDS: RANITIDINE HCL 150 MG TABLET (FP) PO SCH (10:38)
[2018-10-06] MEDS: POLYETHYLENE GLYCOL 3350 119 GM BTL PO SCH (10:41)
[2018-10-06 15:24] VITALS: BP 121/61; PULSE 82; TEMP 98.6
--- NOTE | 2018-10-18 16:35 | PATH ---
Surgical Pathology Report Patient Name: HAMLET SOLER [facility]. Rec. #: [id number] /Age/Gender: 1940 (Age: 78) / F Account: [id number] Location: [address] [place] [address]/[facility] Taken: 09/29/2018 Received: 09/30/2018 Reported: 10/18/2018 Physicians: Tom Amaro M.D. Specimen(s) Received KIDNEY LEFT Clinical History Nonfunctional left kidney Final Diagnosis KIDNEY, LEFT, NEPHRECTOMY: CHRONIC TUBULOINTERSTITIAL NEPHRITIS, SEVERE (HISTORY OF RECURRENT NEPHROLITHIASIS AND INFECTION/CLINICAL). SEE COMMENT. Comment: Immunofluorescence stains performed after pronase digestion show no evidence of renal disease of the immune complex type. The diffuse chronic tubulointerstitial scarring is consistent with a sequela of recurrent infections and nephrolithiasis. There is no evidence of a primary glomerular disease, and no clear-cut evidence of diabetic glomerulosclerosis. Case sent for consultation to Dr. Wisam Dunbar from [facility], [place], [place] ([id number]), the diagnosis above reflects his opinion. See [facility] report for additional details ([id number]). Electronically Signed Zunilda Martinez M.D. Microscopic Description Review of the submitted glass slides, and special stains (PAS, trichrome and JMS) prepared in our laboratory on block 10, shows unremarkable arterial vessels and ureter with denuded epithelium (slide 1). Slides 2-4 show renal cortical parenchyma with several large cysts lined by transitional epithelium, and partially lined by cuboidal or low columnar epithelium. No neoplasm is identified. Sections of the renal pelvis and sinuses (slides 5-7) show unremarkable large arteries, veins and ureter. Sections of the renal parenchyma (slide 8-10) reveal diffuse interstitial fibrosis and tubular atrophy with widespread "thyroidization" in the medulla. Focal segmental and global glomerulosclerosis involves a minority of glomeruli, predominantly in the subcapsular region. The non-sclerotic glomeruli appear normal in size to slightly enlarged and display widespread periglomerular fibrosis. These glomeruli do not show significant mesangial sclerosis. Glomerular basement membranes appear mildly thickened. Several glomeruli show wrinkling of basement membranes and fibrocellular organization of the urinary space, but no crescents, fibrinoid necrosis or fibrin thrombi are seen. Trichrome stain demonstrates severe diffuse interstitial fibrosis. Ring Silver stain shows thickening of basement membranes. The renal medulla shows widespread thyroidization and contains numerous PAS-positive intratubular casts. No neutrophilic casts or calcifications are seen. Arteries show moderate to severe intimal fibrosis and no evidence of arteritis. Gross Description Received in formalin labeled "left kidney," is a 111 g nephrectomy specimen including an 8.0 x 4.5 x 3.7 cm kidney with an attached 0.7 cm in length portion of ureter, a 0.5 cm in length attached portion of vein and a 0.5 cm in length attached portion of artery. The specimen displays moderate attached perinephric fat. The renal calyces display abundant cystic structures with smooth lining. The kidney parenchyma is light borrego and pale. The renal pelvis displays a smooth lining. There is no tumor identified. There is no adrenal gland identified. There are no hilar lymph nodes identified. Dextrine Mixer sections are submitted in cassettes as follows: 1-vesicular ureteral margins; 2-4-cysts in calyces; 5-6-renal pelvis; 7-renal sinus; 7-4-cdmhlrwr pole parenchyma with capsule; 10-inferior pole parenchyma with capsule. 09/30/2018 [facility]09/30/2018
== END 2018-10-06 16:34 | disposition home or self-care (01) | DRG 659 ==
LOC: JASU-SURG 11:42 → JSAMEDAYSX 13:06 → J6S 20:24 → JICU 09-30 08:01 → J5S 10-03 13:36
PROVIDERS: ADMIT Urology; ATTEND Urology
PROC: 0TJ54ZZ Inspection of Kidney, Percutaneous Endoscopic Approach (ICD-10-PCS; 2018-09-29)
PROC: 0TT10ZZ Resection of Left Kidney, Open Approach (ICD-10-PCS; principal; 2018-09-29 13:00)
DX: N17.9 Acute kidney failure, unspecified (principal); J96.02 Acute respiratory failure with hypercapnia; G92 Toxic encephalopathy; D62 Acute posthemorrhagic anemia; N99.821 Postprocedural hemorrhage of a genitourinary system organ or structure following other procedure; E87.2 Acidosis; T40.0X5A Adverse effect of opium, initial encounter; Y92.89 Other specified places as the place of occurrence of the external cause; Z53.31 Laparoscopic surgical procedure converted to open procedure; E66.9 Obesity, unspecified; Z68.35 Body mass index [BMI] 35.0-35.9, adult; Y83.8 Other surgical procedures as the cause of abnormal reaction of the patient, or of later complication, without mention of misadventure at the time of the procedure; E03.9 Hypothyroidism, unspecified; I25.10 Atherosclerotic heart disease of native coronary artery without angina pectoris; E11.22 Type 2 diabetes mellitus with diabetic chronic kidney disease; I12.9 Hypertensive chronic kidney disease with stage 1 through stage 4 chronic kidney disease, or unspecified chronic kidney disease; N18.9 Chronic kidney disease, unspecified; Z95.1 Presence of aortocoronary bypass graft; Z87.891 Personal history of nicotine dependence; F32.9 Major depressive disorder, single episode, unspecified; E78.5 Hyperlipidemia, unspecified; G47.33 Obstructive sleep apnea (adult) (pediatric)
CPT/HCPCS: 36415; 36430; 36511; 36600; 71045-TC-FY; 74018-TC-FY; 80048; 80053; 81003; 82140; 82550; 82553; 82803; 82962; 83605; 83735; 84100; 84484; 85025; 85027; 85610; 85730; 86850; 86900; 86901; 86922; 87086; 88307-TC; 93005; 93010; 94010; 94660; 94760; 97116-GP; 97161-GP; J7030; P9038; P9058